=== PATIENT | male | born 1955 | race Caucasian/White ===

== ENCOUNTER 2017-01-03 05:42 | Day surgery (SDC) | payer MEDICARE, MEDICAID ==
[2017-01-02 09:13] LABS: BLOOD UREA NITROGEN 22 mg/dL (7-18)
[2017-01-02 09:17] LABS: ASPARTATE AMINO TRANSFERASE 9 U/L (15-37)
[~2017-01-03] VITALS: Ht 175.3 cm; Wt 107.0 kg
[~2017-01-03 05:42] MED LIST: ALBU18HF INH; AMLO10TA2 PO; ASPI-515 PO; ATOR80TA75 PO; CILO50TA PO; CLOP75TA PO; FURO80TA3 PO; GABA300C10 PO; HYDR50TA13 PO; ISOS30TA8 PO; LEVE10007 PO; METO25TA35 PO; MULT-309 PO; TIOT4MIS3 INH; TOPI-33 PO
[2017-01-03] MEDS ORDERED: EPINEPHRINE TOPICAL SOLN 1 MG/ML, 30ML ONE (06:10)
[2017-01-03 06:13] VITALS: BP 101/65
[2017-01-03] MEDS ORDERED: KETAMINE 10 MG/ML, 20ML ONE (07:01)
[2017-01-03] MEDS ORDERED: FENTANYL PF 100 MCG/2ML ONE (07:01)
[2017-01-03] MEDS ORDERED: MIDAZOLAM 1 MG/ML, 2ML ONE (07:02)
[2017-01-03] MEDS ORDERED: LACTATED RINGERS 1,000 ML IV SCH (07:07)
[2017-01-03] MEDS ORDERED: PROPOFOL 10 MG/ML, 20ML ONE (07:17)
[2017-01-03] MEDS ORDERED: ALBUTEROL/IPRATROPIUM 2.5MG/0.5MG, 3 ML ONE (07:43)
[2017-01-03] MEDS ORDERED: ALBUTEROL/IPRATROPIUM 2.5MG/0.5MG, 3 ML NPPB PRN (08:30)
== END 2017-01-03 09:40 | disposition home or self-care (01) ==
LOC: OUT 05:42
PROVIDERS: ATTEND Specialist
DX: D38.0 Neoplasm of uncertain behavior of larynx (principal); I25.10 Atherosclerotic heart disease of native coronary artery without angina pectoris; Z95.1 Presence of aortocoronary bypass graft; Z86.79 Personal history of other diseases of the circulatory system; F17.210 Nicotine dependence, cigarettes, uncomplicated; G40.909 Epilepsy, unspecified, not intractable, without status epilepticus; Z86.718 Personal history of other venous thrombosis and embolism; I10 Essential (primary) hypertension; Z86.72 Personal history of thrombophlebitis; J43.9 Emphysema, unspecified; F41.9 Anxiety disorder, unspecified; F32.9 Major depressive disorder, single episode, unspecified; Z72.89 Other problems related to lifestyle; Z80.1 Family history of malignant neoplasm of trachea, bronchus and lung; Z82.49 Family history of ischemic heart disease and other diseases of the circulatory system; Z82.3 Family history of stroke; Z83.3 Family history of diabetes mellitus; Z82.5 Family history of asthma and other chronic lower respiratory diseases
CPT/HCPCS: 31535; 36415; 80053; 88305; 93005; 94640; J2250; J2704; J7120; J3010

== ENCOUNTER 2017-02-14 09:24 | Inpatient (IN) | payer MEDICARE, MEDICAID ==
[~2017-02-14] VITALS: Ht 175.3 cm; Wt 105.2 kg
[~2017-02-14 09:24] MED LIST changes: +ETOMIDATE 20 MG/10 ML ONE; +PROPOFOL 10 MG/ML, 100ML IV ONE; +SUCCINYLCHOLINE 20 MG/ML, 10ML ONE; +VECURONIUM 10 MG ONE
[2017-02-14] MEDS ORDERED: methylPREDNISolone SOD SUCC 125 MG/2 ML ONE (09:50)
[2017-02-14] MEDS ORDERED: SODIUM CHLORIDE FLUSH 10ML SYR IVF ONE ×2 (10:00)
[2017-02-14] MEDS ORDERED: AZITHROMYCIN 500 MG in SODIUM CHLORIDE 0.9% 250 ML IV ONE (10:00)
[2017-02-14] MEDS ORDERED: methylPREDNISolone SOD SUCC 125 MG/2 ML IVP ONE (10:00)
[2017-02-14] MEDS ORDERED: SODIUM CHLORIDE 0.9% 1,000ML IVBOLUS ONE ×4 (10:00→18:00)
[2017-02-14] MEDS ORDERED: CEFTRIAXONE PMX 1GM/50ML 50 ML IVPB ONE (10:00)
[2017-02-14] MEDS ORDERED: SODIUM CHLORIDE 0.9%, 500ML IVBOLUS ONE (10:00)
[2017-02-14] MEDS ORDERED: SODIUM CHLORIDE 0.9% 1,000 ML IV ONE (10:00)
[2017-02-14] MEDS ORDERED: CEFTRIAXONE PMX 1GM/50ML 50 ML ONE (10:04)
[2017-02-14 10:08] LABS: ABG COLLECTION SITE RIGHT BRACHIAL
[2017-02-14 10:20] LABS: ASPARTATE AMINO TRANSFERASE 5 U/L (15-37); BLOOD UREA NITROGEN 15 mg/dL (7-18)
[2017-02-14] MEDS: PROPOFOL 100 ML IV PRN ×3 (10:25→19:54)
[2017-02-14 10:26] LABS: IS PT STATUS REG ER OR PRE ER? YES
[2017-02-14] MEDS ORDERED: ONDANSETRON 2MG/ML, 2ML ONE (10:27)
[2017-02-14] MEDS ORDERED: VECURONIUM 10 MG IVPush ONE (10:30)
[2017-02-14] MEDS ORDERED: ETOMIDATE 20 MG/10 ML IV ONE (10:30)
[2017-02-14] MEDS ORDERED: ONDANSETRON 2MG/ML, 2ML IVPush ONE (10:30)
[2017-02-14] MEDS ORDERED: SUCCINYLCHOLINE 20 MG/ML, 10ML IVPush ONE (10:30)
[2017-02-14] MEDS: ALBUTEROL/IPRATROPIUM 2.5MG/0.5MG, 3 ML NPPB SCH ×2 (10:34→11:00)
[2017-02-14] MEDS ORDERED: ALBUTEROL/IPRATROPIUM 2.5MG/0.5MG, 3 ML ONE ×2 (10:50→11:01)
[2017-02-14] MEDS ORDERED: FUROSEMIDE 40 MG/4 ML ONE (10:52)
[2017-02-14] MEDS ORDERED: FUROSEMIDE 40 MG/4 ML IV ONE (11:00)
[2017-02-14 11:28] LABS: PATH.CAST-FLAG NOT PRESENT; SPERM-FLAG NOT PRESENT; SRC-FLAG NOT PRESENT; XTAL-FLAG NOT PRESENT; YLC-FLAG NOT PRESENT
[2017-02-14] MEDS ORDERED: ONDANSETRON 2MG/ML, 2ML IVPush PRN (12:30)
[2017-02-14] MEDS ORDERED: OXYcodone IR 5MG TABLET PO PRN (12:30)
[2017-02-14] MEDS ORDERED: LORazepam 2 MG/ML, 1ML IVPush PRN (12:30)
[2017-02-14] MEDS ORDERED: POLYETHYLENE GLYCOL 17 GM PACKET PO PRN (12:30)
[2017-02-14] MEDS ORDERED: NOREPINEPHRINE 4 MG in SODIUM CHLORIDE 0.9% 246 ML IV PRN (12:30)
[2017-02-14] MEDS ORDERED: ACETAMINOPHEN 325 MG TABLET PO PRN (12:30)
[2017-02-14 12:37] LABS: ABG COLLECTION SITE RIGHT RADIAL; COLLATERAL CIRCULATION TESTING NORMAL; FIO2 50 %
[2017-02-14] MEDS: methylPREDNISolone SOD SUCC 125 MG/2 ML IVPush SCH ×2 (12:58→17:16)
[2017-02-14] MEDS: ENOXAPARIN 40 MG/0.4 ML SQ SCH (12:58)
[2017-02-14] MEDS: SODIUM CHLORIDE 0.9% 1,000 ML IV SCH ×2 (12:59→22:23)
[2017-02-14] MEDS ORDERED: CEFTRIAXONE PMX 1GM/50ML 50 ML IV SCH ×3 (13:00)
[2017-02-14] MEDS ORDERED: PROPOFOL 100 ML IV PRN (14:53)
[2017-02-14] MEDS ORDERED: SENNOSIDES 8.8 MG/5 ML ORAL SOL NG PRN (15:00)
[2017-02-14] MEDS ORDERED: LIDOCAINE-MPF 1%, 2ML ENDO PRN (15:00)
[2017-02-14] MEDS ORDERED: FENTANYL PF 100 MCG/2ML IVPush PRN (15:00)
[2017-02-14] MEDS ORDERED: BISACODYL 10 MG SUPP PR PRN (15:00)
[2017-02-14] MEDS ORDERED: LACTULOSE 20 GM/30 ML UDC NG PRN (15:00)
[2017-02-14] MEDS: ALBUTEROL/IPRATROPIUM 2.5MG/0.5MG, 3 ML INLINE SCH ×3 (15:00→22:43)
[2017-02-14] MEDS ORDERED: SENNA/DOCUSATE TABLET NG PRN (15:00)
[2017-02-14] MEDS ORDERED: PHARMACY MAY ADJ FOR RENAL FX MC SCH (15:00)
[2017-02-14] MEDS: LEVETIRACETAM 500 MG TABLET PO SCH (20:04)
[2017-02-14] MEDS: SODIUM CHLORIDE FLUSH 3ML SYRINGE IVF SCH (20:04)
[2017-02-14] MEDS: TOPIRAMATE 25 MG TABLET PO SCH (20:04)
[2017-02-14] MEDS: GABAPENTIN 300 MG CAPSULE PO SCH (20:04)
[2017-02-14] MEDS: ATORVASTATIN 80 MG TABLET PO SCH (20:04)
[2017-02-14] MEDS: FAMOTIDINE 20 MG/2 ML IVPush SCH (20:04)
[2017-02-14] MEDS: CLOPIDOGREL 75 MG TABLET PO SCH (20:04)
[2017-02-15] MEDS: methylPREDNISolone SOD SUCC 125 MG/2 ML IVPush SCH ×4 (00:04→17:26)
[2017-02-15] MEDS: SODIUM CHLORIDE 0.9% 1,000 ML IV SCH (00:15)
[2017-02-15] MEDS: ALBUTEROL/IPRATROPIUM 2.5MG/0.5MG, 3 ML INLINE SCH ×6 (02:09→22:54)
[2017-02-15 04:29] VITALS: BP 110/60
[2017-02-15 04:38] LABS: ABG COLLECTION SITE LEFT RADIAL; COLLATERAL CIRCULATION TESTING NORMAL
[2017-02-15 05:08] LABS: BLOOD UREA NITROGEN 18 mg/dL (7-18)
[2017-02-15 05:12] LABS: ASPARTATE AMINO TRANSFERASE 7 U/L (15-37)
[2017-02-15] MEDS: TOPIRAMATE 25 MG TABLET PO SCH ×2 (07:45→21:14)
[2017-02-15] MEDS: LEVETIRACETAM 500 MG TABLET PO SCH ×2 (07:45→21:14)
[2017-02-15] MEDS: ASPIRIN 81 MG TABLET EC PO SCH (07:45)
[2017-02-15] MEDS: GABAPENTIN 300 MG CAPSULE PO SCH ×2 (07:45→21:14)
[2017-02-15] MEDS: POTASSIUM CHLORIDE 10% 40 MEQ/30 ML UDC PO SCH ×2 (07:45→21:16)
[2017-02-15] MEDS: SENNA/DOCUSATE TABLET PO SCH (07:46)
[2017-02-15] MEDS: TEMPLATE NON-FORMULARY MED. (Tiotropium Br/Olodaterol HCl (Stiolto Respimat Inhal Spray) 2 INH SCH (07:46)
[2017-02-15] MEDS: SODIUM CHLORIDE FLUSH 3ML SYRINGE IVF SCH ×2 (07:46→21:00)
[2017-02-15] MEDS: FAMOTIDINE 20 MG/2 ML IVPush SCH ×2 (07:47→21:14)
[2017-02-15 08:09] LABS: IS PT STATUS REG ER OR PRE ER? NO
[2017-02-15] MEDS ORDERED: SODIUM CHLORIDE 0.9% 1,000 ML IV SCH (08:30)
[2017-02-15] MEDS ORDERED: FUROSEMIDE 20 MG/2 ML IV ONE ×2 (08:30→16:00)
[2017-02-15] MEDS: PROPOFOL 100 ML IV PRN ×2 (09:27→17:26)
[2017-02-15] MEDS ORDERED: CEFTRIAXONE PMX 1GM/50ML 50 ML IV SCH (10:00)
[2017-02-15] MEDS ORDERED: AZITHROMYCIN 500 MG in SODIUM CHLORIDE 0.9% 250 ML IV SCH (11:00)
[2017-02-15] MEDS: ENOXAPARIN 40 MG/0.4 ML SQ SCH (13:22)
[2017-02-15] MEDS: MEROPENEM 1 GM in SODIUM CHLORIDE 0.9% 50 ML IV SCH ×2 (14:28→21:14)
[2017-02-15] MEDS: ATORVASTATIN 80 MG TABLET PO SCH (21:14)
[2017-02-15] MEDS: CLOPIDOGREL 75 MG TABLET PO SCH (21:14)
[2017-02-16] MEDS: methylPREDNISolone SOD SUCC 125 MG/2 ML IVPush SCH ×4 (00:59→18:15)
[2017-02-16] MEDS: ALBUTEROL/IPRATROPIUM 2.5MG/0.5MG, 3 ML INLINE SCH ×3 (02:56→10:59)
[2017-02-16] MEDS: PROPOFOL 100 ML IV PRN (03:40)
[2017-02-16 04:38] VITALS: BP 116/67
[2017-02-16 04:49] LABS: ABG COLLECTION SITE RIGHT RADIAL; COLLATERAL CIRCULATION TESTING NORMAL
[2017-02-16] MEDS: MEROPENEM 1 GM in SODIUM CHLORIDE 0.9% 50 ML IV SCH ×3 (05:12→20:08)
[2017-02-16 05:14] LABS: BLOOD UREA NITROGEN 25 mg/dL (7-18)
[2017-02-16] MEDS: SODIUM CHLORIDE FLUSH 3ML SYRINGE IVF SCH ×2 (09:00→20:11)
[2017-02-16] MEDS: SENNA/DOCUSATE TABLET PO SCH (09:00)
[2017-02-16] MEDS: TEMPLATE NON-FORMULARY MED. (Tiotropium Br/Olodaterol HCl (Stiolto Respimat Inhal Spray) 2 INH SCH (09:00)
[2017-02-16] MEDS: GABAPENTIN 300 MG CAPSULE PO SCH ×2 (09:21→20:08)
[2017-02-16] MEDS: LEVETIRACETAM 500 MG TABLET PO SCH ×2 (09:21→20:09)
[2017-02-16] MEDS: ASPIRIN 81 MG TABLET EC PO SCH (09:21)
[2017-02-16] MEDS: TOPIRAMATE 25 MG TABLET PO SCH ×2 (09:21→20:09)
[2017-02-16] MEDS: FAMOTIDINE 20 MG/2 ML IVPush SCH ×2 (09:21→20:09)
[2017-02-16] MEDS ORDERED: ALBUTEROL/IPRATROPIUM 2.5MG/0.5MG, 3 ML NPPB PRN (12:00)
[2017-02-16] MEDS: ENOXAPARIN 40 MG/0.4 ML SQ SCH (13:27)
[2017-02-16] MEDS: ALBUTEROL/IPRATROPIUM 2.5MG/0.5MG, 3 ML NPPB SCH ×3 (14:41→22:45)
[2017-02-16] MEDS: ATORVASTATIN 80 MG TABLET PO SCH (20:08)
[2017-02-16] MEDS: CLOPIDOGREL 75 MG TABLET PO SCH (20:09)
[2017-02-17] MEDS: methylPREDNISolone SOD SUCC 125 MG/2 ML IVPush SCH ×4 (00:30→18:24)
[2017-02-17] MEDS: ALBUTEROL/IPRATROPIUM 2.5MG/0.5MG, 3 ML NPPB SCH ×6 (03:30→23:00)
[2017-02-17 04:32] LABS: ABG COLLECTION SITE RIGHT RADIAL; COLLATERAL CIRCULATION TESTING NORMAL
[2017-02-17 04:43] LABS: BLOOD UREA NITROGEN 26 mg/dL (7-18)
[2017-02-17 05:00] VITALS: BP 110/60
[2017-02-17] MEDS: MEROPENEM 1 GM in SODIUM CHLORIDE 0.9% 50 ML IV SCH ×3 (06:02→21:39)
[2017-02-17] MEDS ORDERED: SODIUM CHLORIDE 0.9% 1,000 ML IV SCH (08:31)
[2017-02-17] MEDS: TEMPLATE NON-FORMULARY MED. (Tiotropium Br/Olodaterol HCl (Stiolto Respimat Inhal Spray) 2 INH SCH (09:00)
[2017-02-17] MEDS: LEVETIRACETAM 500 MG TABLET PO SCH ×2 (09:08→21:11)
[2017-02-17] MEDS: SENNA/DOCUSATE TABLET PO SCH (09:08)
[2017-02-17] MEDS: ASPIRIN 81 MG TABLET EC PO SCH (09:08)
[2017-02-17] MEDS: GABAPENTIN 300 MG CAPSULE PO SCH ×2 (09:09→21:12)
[2017-02-17] MEDS: TOPIRAMATE 25 MG TABLET PO SCH ×2 (09:09→21:12)
[2017-02-17] MEDS: SODIUM CHLORIDE FLUSH 3ML SYRINGE IVF SCH ×2 (09:17→21:00)
[2017-02-17] MEDS: CIPROFLOXACIN/PMX 400MG/200ML 200 ML IVPB SCH ×2 (10:16→22:43)
[2017-02-17] MEDS: ENOXAPARIN 40 MG/0.4 ML SQ SCH (12:41)
[2017-02-17 14:29] LABS: ABG COLLECTION SITE RIGHT RADIAL; COLLATERAL CIRCULATION TESTING NORMAL
[2017-02-17 15:05] VITALS: BP 107/68
[2017-02-17] MEDS ORDERED: GADOBUTROL 10 MMOL/10 ML PFS ONE (19:04)
[2017-02-17] MEDS ORDERED: TEMPLATE NON-FORMULARY MED. (Tiotropium Br/Olodaterol HCl (Stiolto Respimat Inhal Spray) 2 INH SCH (20:55)
[2017-02-17] MEDS: CLOPIDOGREL 75 MG TABLET PO SCH (21:00)
[2017-02-17] MEDS: ATORVASTATIN 80 MG TABLET PO SCH (21:12)
[2017-02-17 21:15] VITALS: BP 101/64
[2017-02-18] MEDS: methylPREDNISolone SOD SUCC 125 MG/2 ML IVPush SCH ×4 (00:43→17:49)
[2017-02-18 02:48] VITALS: BP 110/67
[2017-02-18] MEDS: ALBUTEROL/IPRATROPIUM 2.5MG/0.5MG, 3 ML NPPB SCH ×5 (03:00→18:33)
[2017-02-18] MEDS: MEROPENEM 1 GM in SODIUM CHLORIDE 0.9% 50 ML IV SCH (05:15)
[2017-02-18 05:43] LABS: BLOOD UREA NITROGEN 27 mg/dL (7-18)
[2017-02-18 08:00] VITALS: BP 127/78
[2017-02-18] MEDS: ASPIRIN 81 MG TABLET EC PO SCH (09:00)
[2017-02-18] MEDS: LEVETIRACETAM 500 MG TABLET PO SCH ×2 (09:11→20:58)
[2017-02-18] MEDS: GABAPENTIN 300 MG CAPSULE PO SCH ×2 (09:12→20:59)
[2017-02-18] MEDS: TOPIRAMATE 25 MG TABLET PO SCH ×2 (09:12→20:59)
[2017-02-18] MEDS: SENNA/DOCUSATE TABLET PO SCH (09:12)
[2017-02-18] MEDS: SODIUM CHLORIDE FLUSH 3ML SYRINGE IVF SCH ×2 (09:13→20:58)
[2017-02-18] MEDS: PANTOPRAZOLE 40 MG IV IVPush SCH ×2 (09:13→11:05)
[2017-02-18] MEDS ORDERED: ASPIRIN 81 MG TABLET CHEW PO SCH (09:30)
[2017-02-18] MEDS: CIPROFLOXACIN/PMX 400MG/200ML 200 ML IVPB SCH ×2 (11:05→22:20)
[2017-02-18] MEDS ORDERED: ENOXAPARIN 40 MG/0.4 ML SQ SCH (12:00)
[2017-02-18] MEDS ORDERED: OMNIPAQUE 350 MG/ML, 100ML BOTTLE ONE (12:10)
[2017-02-18 13:26] VITALS: BP 123/68
[2017-02-18] MEDS: MEROPENEM 1 GM in SODIUM CHLORIDE 0.9% 100 ML IV SCH ×2 (14:51→23:23)
[2017-02-18 19:08] VITALS: BP 100/78
[2017-02-18] MEDS: CLOPIDOGREL 75 MG TABLET PO SCH (20:58)
[2017-02-18] MEDS: ATORVASTATIN 80 MG TABLET PO SCH (20:59)
[2017-02-19] MEDS: methylPREDNISolone SOD SUCC 125 MG/2 ML IVPush SCH ×2 (00:28→06:34)
[2017-02-19 01:48] VITALS: BP 109/64
[2017-02-19 05:28] LABS: BLOOD UREA NITROGEN 32 mg/dL (7-18)
[2017-02-19 05:32] LABS: ASPARTATE AMINO TRANSFERASE 10 U/L (15-37)
[2017-02-19] MEDS: MEROPENEM 1 GM in SODIUM CHLORIDE 0.9% 100 ML IV SCH (06:34)
[2017-02-19] MEDS ORDERED: ALBUTEROL/IPRATROPIUM 2.5MG/0.5MG, 3 ML NPPB SCH (07:00)
[2017-02-19] MEDS ORDERED: SODIUM CHLORIDE 0.9% 1,000 ML IV SCH (08:31)
== END 2017-02-19 10:10 | disposition left against medical advice (07) | DRG 871 ==
LOC: ED 11:12 → EDIP 11:13 → CCU 11:48 → 5SO 02-17 14:56
PROVIDERS: ADMIT Internal Medicine; ATTEND Internal Medicine
PROC: 5A1945Z Respiratory Ventilation, 24-96 Consecutive Hours (ICD-10-PCS; principal; 2017-02-14)
PROC: 0BH17EZ Insertion of Endotracheal Airway into Trachea, Via Natural or Artificial Opening (ICD-10-PCS; 2017-02-14)
DX: A41.9 Sepsis, unspecified organism (principal); I50.31 Acute diastolic (congestive) heart failure; J96.21 Acute and chronic respiratory failure with hypoxia; E43 Unspecified severe protein-calorie malnutrition; G93.40 Encephalopathy, unspecified; J15.4 Pneumonia due to other streptococci; J96.22 Acute and chronic respiratory failure with hypercapnia; E87.1 Hypo-osmolality and hyponatremia; I13.0 Hypertensive heart and chronic kidney disease with heart failure and stage 1 through stage 4 chronic kidney disease, or unspecified chronic kidney disease; J44.0 Chronic obstructive pulmonary disease with (acute) lower respiratory infection; J44.1 Chronic obstructive pulmonary disease with (acute) exacerbation; N39.0 Urinary tract infection, site not specified; Z99.11 Dependence on respirator [ventilator] status; E78.5 Hyperlipidemia, unspecified; F17.200 Nicotine dependence, unspecified, uncomplicated; G40.909 Epilepsy, unspecified, not intractable, without status epilepticus; G47.33 Obstructive sleep apnea (adult) (pediatric); I25.10 Atherosclerotic heart disease of native coronary artery without angina pectoris; I27.2 Other secondary pulmonary hypertension; I73.9 Peripheral vascular disease, unspecified; N18.9 Chronic kidney disease, unspecified; Z85.21 Personal history of malignant neoplasm of larynx; Z95.1 Presence of aortocoronary bypass graft; Z99.81 Dependence on supplemental oxygen; Z79.899 Other long term (current) drug therapy; Z79.82 Long term (current) use of aspirin; Z79.02 Long term (current) use of antithrombotics/antiplatelets; Z68.34 Body mass index [BMI] 34.0-34.9, adult
CPT/HCPCS: 36415; 36600; 70491; 70543; 71010; 74230; 80048; 80053; 80201; 81001; 82533; 82803; 83605; 83735; 83880; 84100; 84145; 84478; 84484; 85025; 85610; 85730; 87040; 87070; 87077; 87081; 87086; 87181; 87184; 87186; 87205; 93005; 93306; 94002; 94003; 94640; 94660; A9585; J0456; J0696; J0744; J1650; J1940; J2185; J2405; J2704; J7620; Q9967; C9113; J0330; J2930; J7030; J7040; J7050; S0028

== ENCOUNTER 2017-03-16 19:07 | Inpatient (IN) | payer MEDICARE, MEDICAID ==
[~2017-03-16] VITALS: Ht 175.3 cm; Wt 106.4 kg
[~2017-03-16 19:07] MED LIST changes: -VECURONIUM 10 MG ONE
[2017-03-16] MEDS: ALBUTEROL/IPRATROPIUM 2.5MG/0.5MG, 3 ML NPPB SCH (19:21)
[2017-03-16] MEDS ORDERED: methylPREDNISolone SOD SUCC 125 MG/2 ML IVP ONE (19:30)
[2017-03-16] MEDS ORDERED: MAGNESIUM SULFATE PMX 2GM/50ML 50 ML IVPB ONE (19:30)
[2017-03-16] MEDS ORDERED: methylPREDNISolone SOD SUCC 125 MG/2 ML ONE (19:34)
[2017-03-16] MEDS ORDERED: PIPERACILLIN/TAZO/PMX 3.375GM 50 ML IVPB ONE (20:00)
[2017-03-16 20:06] LABS: ASPARTATE AMINO TRANSFERASE 7 U/L (15-37); BLOOD UREA NITROGEN 12 mg/dL (7-18)
[2017-03-16] MEDS ORDERED: PIPERACILLIN/TAZO/PMX 3.375GM 50 ML ONE (20:13)
[2017-03-16 20:15] LABS: IS PT STATUS REG ER OR PRE ER? YES
[2017-03-16 20:17] LABS: DIFF TOTAL CELLS COUNTED 100 CELL DIFF
[2017-03-16 20:18] LABS: ABG COLLECTION SITE LEFT RADIAL; COLLATERAL CIRCULATION TESTING NORMAL
[2017-03-16 20:19] LABS: POLYCHROMASIA 1+; VERIFY COUNTS? YES
[2017-03-16] MEDS ORDERED: PROPOFOL 100 ML IV PRN (20:28)
[2017-03-16] MEDS ORDERED: FENTANYL PF 100 MCG/2ML IV ONE (20:30)
[2017-03-16] MEDS ORDERED: ETOMIDATE 20 MG/10 ML IV ONE (20:30)
[2017-03-16] MEDS ORDERED: SUCCINYLCHOLINE 20 MG/ML, 10ML IVPush ONE (20:30)
[2017-03-16] MEDS ORDERED: LIDOCAINE-MPF 1%, 2ML ENDO PRN (21:00)
[2017-03-16] MEDS ORDERED: PHARMACY MAY ADJ FOR RENAL FX MC SCH (21:00)
[2017-03-16] MEDS ORDERED: FENTANYL PF 100 MCG/2ML ONE (21:02)
[2017-03-16] MEDS ORDERED: NS + 20MEQ KCL 1,000 ML IV ONE (21:15)
[2017-03-16] MEDS: NS + 20MEQ KCL 1,000 ML IV SCH ×2 (21:20→23:23)
[2017-03-16 21:23] LABS: ABG COLLECTION SITE RIGHT RADIAL; COLLATERAL CIRCULATION TESTING NORMAL
[2017-03-16] MEDS ORDERED: DOCUSATE 100 MG CAPSULE PO PRN (21:30)
[2017-03-16] MEDS: methylPREDNISolone SOD SUCC 125 MG/2 ML IVPush SCH (21:30)
[2017-03-16] MEDS ORDERED: ACETAMINOPHEN 325 MG TABLET PO PRN (21:30)
[2017-03-16] MEDS ORDERED: PROCHLORPERAZINE 5 MG/ML, 2ML IM PRN (21:30)
[2017-03-16] MEDS ORDERED: BISACODYL 10 MG SUPP PR PRN (21:30)
[2017-03-16] MEDS ORDERED: ONDANSETRON 2MG/ML, 2ML IVPush PRN (21:30)
[2017-03-16] MEDS ORDERED: hydrALAzine 20 MG/ML, 1ML IVPush PRN (21:30)
[2017-03-16] MEDS ORDERED: VANCOMYCIN PER PHARMACY MC PRN (21:30)
[2017-03-16] MEDS ORDERED: POLYETHYLENE GLYCOL 17 GM PACKET PO PRN (21:30)
[2017-03-16] MEDS: VANCOMYCIN 2,000 MG in SODIUM CHLORIDE 0.9% 500 ML IV SCH (22:54)
[2017-03-16 23:00] VITALS: BP 82/50
[2017-03-16] MEDS: ALBUTEROL/IPRATROPIUM 2.5MG/0.5MG, 3 ML INLINE SCH (23:00)
[2017-03-16] MEDS: LEVETIRACETAM 500 MG TABLET PO SCH (23:11)
[2017-03-16] MEDS: ENOXAPARIN 40 MG/0.4 ML SQ SCH (23:12)
[2017-03-16] MEDS: ATORVASTATIN 80 MG TABLET PO SCH (23:12)
[2017-03-16] MEDS: CLOPIDOGREL 75 MG TABLET PO SCH (23:23)
[2017-03-17] MEDS ORDERED: SODIUM CHLORIDE 0.9% 1,000ML IVBOLUS ONE ×2 (01:00→03:30)
[2017-03-17 01:10] LABS: ABG COLLECTION SITE RIGHT BRACHIAL
[2017-03-17] MEDS: ALBUTEROL/IPRATROPIUM 2.5MG/0.5MG, 3 ML INLINE SCH ×6 (02:06→22:37)
[2017-03-17] MEDS: PIPERACILLIN/TAZO/PMX 3.375GM 50 ML IV SCH ×4 (02:49→21:23)
[2017-03-17] MEDS: methylPREDNISolone SOD SUCC 125 MG/2 ML IVPush SCH ×4 (02:51→21:42)
[2017-03-17 04:00] VITALS: BP 80/44
[2017-03-17 04:51] LABS: ABG COLLECTION SITE RIGHT BRACHIAL
[2017-03-17 05:00] LABS: BLOOD UREA NITROGEN 14 mg/dL (7-18)
[2017-03-17] MEDS ORDERED: NOREPINEPHRINE 4 MG in SODIUM CHLORIDE 0.9% 246 ML IV PRN (05:00)
[2017-03-17 05:09] LABS: ASPARTATE AMINO TRANSFERASE 10 U/L (15-37)
[2017-03-17 05:50] LABS: DIFF TOTAL CELLS COUNTED 100 CELL DIFF
[2017-03-17 05:53] LABS: ANISOCYTOSIS 1+; VERIFY COUNTS? YES
[2017-03-17 05:55] LABS: POLYCHROMASIA 1+
[2017-03-17] MEDS ORDERED: POTASSIUM PHOSPHATE 44 MEQ in SODIUM CHLORIDE 0.9% 500 ML IV ONE (07:00)
[2017-03-17] MEDS ORDERED: POTASSIUM CHLORIDE 20 MEQ PACKET PO SCH (09:00)
[2017-03-17] MEDS: ISOSORBIDE MONONITRATE ER 30 MG TABLET PO SCH (09:00)
[2017-03-17] MEDS ORDERED: ASPIRIN 81 MG TABLET EC PO SCH (09:00)
[2017-03-17] MEDS ORDERED: PHARMACOKINETIC CONSULTATION MC ONE (09:30)
[2017-03-17] MEDS ORDERED: PHARMACOKINETIC MONITORING MC PRN (09:30)
[2017-03-17] MEDS: POTASSIUM CHLORIDE 20 MEQ PACKET PO SCH ×2 (09:36→21:42)
[2017-03-17] MEDS: LEVETIRACETAM 500 MG TABLET PO SCH ×2 (09:36→21:42)
[2017-03-17] MEDS: TOPIRAMATE 25 MG TABLET PO SCH ×2 (09:37→21:42)
[2017-03-17] MEDS: METOPROLOL TARTRATE 25 MG TABLET PO SCH ×2 (09:37→21:44)
[2017-03-17] MEDS: PROPOFOL 100 ML IV PRN (09:39)
[2017-03-17] MEDS: NS + 20MEQ KCL 1,000 ML IV SCH ×2 (09:48→17:39)
[2017-03-17] MEDS: ASPIRIN 81 MG TABLET CHEW PO SCH (15:20)
[2017-03-17] MEDS: ENOXAPARIN 40 MG/0.4 ML SQ SCH (21:42)
[2017-03-17] MEDS: ATORVASTATIN 80 MG TABLET PO SCH (21:43)
[2017-03-17] MEDS: CLOPIDOGREL 75 MG TABLET PO SCH (21:44)
[2017-03-17] MEDS: VANCOMYCIN 2,000 MG in SODIUM CHLORIDE 0.9% 500 ML IV SCH (23:47)
[2017-03-18] MEDS: ALBUTEROL/IPRATROPIUM 2.5MG/0.5MG, 3 ML INLINE SCH ×3 (01:38→10:00)
[2017-03-18] MEDS: NS + 20MEQ KCL 1,000 ML IV SCH ×2 (02:53→17:00)
[2017-03-18] MEDS: PIPERACILLIN/TAZO/PMX 3.375GM 50 ML IV SCH ×4 (02:53→20:30)
[2017-03-18] MEDS: PROPOFOL 100 ML IV PRN (02:53)
[2017-03-18] MEDS: methylPREDNISolone SOD SUCC 125 MG/2 ML IVPush SCH ×4 (02:54→20:30)
[2017-03-18 04:35] LABS: ABG COLLECTION SITE RIGHT RADIAL; COLLATERAL CIRCULATION TESTING NORMAL
[2017-03-18 05:59] LABS: BLOOD UREA NITROGEN 21 mg/dL (7-18)
[2017-03-18] MEDS: ASPIRIN 81 MG TABLET CHEW PO SCH (08:17)
[2017-03-18] MEDS: TOPIRAMATE 25 MG TABLET PO SCH ×2 (08:18→20:50)
[2017-03-18] MEDS: METOPROLOL TARTRATE 25 MG TABLET PO SCH ×2 (08:18→20:49)
[2017-03-18] MEDS: LEVETIRACETAM 500 MG TABLET PO SCH ×2 (08:18→20:49)
[2017-03-18] MEDS: ISOSORBIDE MONONITRATE ER 30 MG TABLET PO SCH (09:00)
[2017-03-18] MEDS ORDERED: SODIUM PHOSPHATE 20 MMOL in SODIUM CHLORIDE 0.9% 500 ML IV ONE (09:30)
[2017-03-18] MEDS: ALBUTEROL/IPRATROPIUM 2.5MG/0.5MG, 3 ML NPPB SCH ×3 (11:00→18:49)
[2017-03-18] MEDS: ENOXAPARIN 40 MG/0.4 ML SQ SCH (20:30)
[2017-03-18] MEDS: CLOPIDOGREL 75 MG TABLET PO SCH (20:49)
[2017-03-18] MEDS: ATORVASTATIN 80 MG TABLET PO SCH (20:49)
[2017-03-19] MEDS: PIPERACILLIN/TAZO/PMX 3.375GM 50 ML IV SCH ×4 (02:36→22:25)
[2017-03-19] MEDS: methylPREDNISolone SOD SUCC 125 MG/2 ML IVPush SCH ×4 (04:28→22:25)
[2017-03-19 04:58] LABS: BLOOD UREA NITROGEN 20 mg/dL (7-18)
[2017-03-19] MEDS: ALBUTEROL/IPRATROPIUM 2.5MG/0.5MG, 3 ML NPPB SCH ×4 (07:25→20:45)
[2017-03-19] MEDS: METOPROLOL TARTRATE 25 MG TABLET PO SCH ×2 (09:18→21:02)
[2017-03-19] MEDS: TOPIRAMATE 25 MG TABLET PO SCH ×2 (09:18→21:02)
[2017-03-19] MEDS: LEVETIRACETAM 500 MG TABLET PO SCH ×2 (09:19→21:02)
[2017-03-19] MEDS: ASPIRIN 81 MG TABLET CHEW PO SCH (09:19)
[2017-03-19] MEDS: ISOSORBIDE MONONITRATE ER 30 MG TABLET PO SCH (09:20)
[2017-03-19 15:47] VITALS: BP 110/66
[2017-03-19] MEDS: NS + 20MEQ KCL 1,000 ML IV SCH (16:15)
[2017-03-19 19:14] VITALS: BP 124/74
[2017-03-19] MEDS: ATORVASTATIN 80 MG TABLET PO SCH (21:02)
[2017-03-19] MEDS: CLOPIDOGREL 75 MG TABLET PO SCH (21:02)
[2017-03-19] MEDS: ENOXAPARIN 40 MG/0.4 ML SQ SCH (22:25)
[2017-03-20 00:48] VITALS: BP 125/71
[2017-03-20] MEDS: PIPERACILLIN/TAZO/PMX 3.375GM 50 ML IV SCH ×4 (04:35→22:00)
[2017-03-20] MEDS: methylPREDNISolone SOD SUCC 125 MG/2 ML IVPush SCH ×4 (04:36→22:12)
[2017-03-20 06:00] LABS: BLOOD UREA NITROGEN 23 mg/dL (7-18)
[2017-03-20] MEDS: ALBUTEROL/IPRATROPIUM 2.5MG/0.5MG, 3 ML NPPB SCH ×4 (07:00→19:35)
[2017-03-20 07:20] VITALS: BP 123/78
[2017-03-20] MEDS: LEVETIRACETAM 500 MG TABLET PO SCH (08:33)
[2017-03-20] MEDS: ISOSORBIDE MONONITRATE ER 30 MG TABLET PO SCH (08:33)
[2017-03-20] MEDS: ASPIRIN 81 MG TABLET CHEW PO SCH (08:33)
[2017-03-20] MEDS: METOPROLOL TARTRATE 25 MG TABLET PO SCH ×2 (08:33→19:57)
[2017-03-20] MEDS: TOPIRAMATE 25 MG TABLET PO SCH ×2 (08:34→19:58)
[2017-03-20] MEDS: LEVETIRACETAM 1,000 MG in SODIUM CHLORIDE 0.9% 100 ML IV SCH ×2 (11:55→22:43)
[2017-03-20] MEDS: D5%-0.45% NACL 1,000 ML IV SCH ×2 (13:20→22:43)
[2017-03-20 18:47] VITALS: BP 134/80
[2017-03-20] MEDS: CLOPIDOGREL 75 MG TABLET PO SCH (19:57)
[2017-03-20] MEDS: ATORVASTATIN 80 MG TABLET PO SCH (19:57)
[2017-03-20] MEDS: ENOXAPARIN 40 MG/0.4 ML SQ SCH (21:30)
[2017-03-21] MEDS: PIPERACILLIN/TAZO/PMX 3.375GM 50 ML IV SCH ×4 (04:00→22:13)
[2017-03-21] MEDS: methylPREDNISolone SOD SUCC 125 MG/2 ML IVPush SCH ×4 (05:00→23:06)
[2017-03-21 06:57] LABS: BLOOD UREA NITROGEN 24 mg/dL (7-18)
[2017-03-21 08:10] VITALS: BP 151/81
[2017-03-21] MEDS: ALBUTEROL/IPRATROPIUM 2.5MG/0.5MG, 3 ML NPPB SCH ×4 (08:10→20:00)
[2017-03-21] MEDS: TOPIRAMATE 25 MG TABLET PO SCH ×2 (09:15→21:00)
[2017-03-21] MEDS: ISOSORBIDE MONONITRATE ER 30 MG TABLET PO SCH (09:15)
[2017-03-21] MEDS: METOPROLOL TARTRATE 25 MG TABLET PO SCH ×2 (09:15→21:00)
[2017-03-21] MEDS: ASPIRIN 81 MG TABLET CHEW PO SCH (09:15)
[2017-03-21] MEDS: LEVETIRACETAM 1,000 MG in SODIUM CHLORIDE 0.9% 100 ML IV SCH ×2 (11:53→23:06)
[2017-03-21] MEDS: D5%-0.45% NACL 1,000 ML IV SCH ×2 (11:53→22:12)
[2017-03-21 13:06] VITALS: BP 125/67
[2017-03-21] MEDS: ATORVASTATIN 80 MG TABLET PO SCH (21:00)
[2017-03-21] MEDS: CLOPIDOGREL 75 MG TABLET PO SCH (21:00)
[2017-03-21 21:12] VITALS: BP 127/78
[2017-03-21] MEDS: ENOXAPARIN 40 MG/0.4 ML SQ SCH (21:30)
[2017-03-22] MEDS: PIPERACILLIN/TAZO/PMX 3.375GM 50 ML IV SCH ×3 (03:42→21:52)
[2017-03-22 03:46] VITALS: BP 111/75
[2017-03-22 05:52] LABS: BLOOD UREA NITROGEN 22 mg/dL (7-18)
[2017-03-22] MEDS: methylPREDNISolone SOD SUCC 125 MG/2 ML IVPush SCH ×3 (05:54→21:52)
[2017-03-22 07:15] VITALS: BP 134/54
[2017-03-22] MEDS: ALBUTEROL/IPRATROPIUM 2.5MG/0.5MG, 3 ML NPPB SCH ×4 (07:27→20:22)
[2017-03-22] MEDS ORDERED: FENTANYL PF 100 MCG/2ML ONE (09:55)
[2017-03-22] MEDS ORDERED: MIDAZOLAM 1 MG/ML, 5ML ONE (09:55)
[2017-03-22] MEDS ORDERED: FLUMAZENIL 0.1 MG/1 ML, 5ML ONE (09:55)
[2017-03-22] MEDS ORDERED: NALOXONE 1 MG/ML, 2ML ONE (09:55)
[2017-03-22] MEDS ORDERED: LIDOCAINE 2%, 20ML ONE ×2 (10:19→10:57)
[2017-03-22] MEDS ORDERED: LIDOCAINE GEL 2%, 5ML ONE ×2 (10:57→17:00)
[2017-03-22 13:15] VITALS: BP 129/78
[2017-03-22] MEDS: ISOSORBIDE MONONITRATE ER 30 MG TABLET PO SCH (15:03)
[2017-03-22] MEDS: TOPIRAMATE 25 MG TABLET PO SCH ×2 (15:03→21:53)
[2017-03-22] MEDS: METOPROLOL TARTRATE 25 MG TABLET PO SCH ×2 (15:03→21:53)
[2017-03-22] MEDS: ASPIRIN 81 MG TABLET CHEW PO SCH (15:03)
[2017-03-22] MEDS: LEVETIRACETAM 1,000 MG in SODIUM CHLORIDE 0.9% 100 ML IV SCH ×2 (15:03→23:00)
[2017-03-22] MEDS ORDERED: LIDOCAINE/MPF 2%-EPI 1:200K, 20 ML ONE (15:12)
[2017-03-22] MEDS ORDERED: LIDOCAINE/PF 2%-EPI 1:200K, 10ML INFIL ONE (16:30)
[2017-03-22] MEDS ORDERED: BENZOCAINE 20% SPRAY 0.5ML ONE (16:58)
[2017-03-22] MEDS: D5%-0.45% NACL 1,000 ML IV SCH (17:00)
[2017-03-22] MEDS ORDERED: OMNIPAQUE 350 MG/ML, 50 ML BOTTLE ONE (18:23)
[2017-03-22] MEDS: CLOPIDOGREL 75 MG TABLET PO SCH (21:00)
[2017-03-22] MEDS: ENOXAPARIN 40 MG/0.4 ML SQ SCH (21:30)
[2017-03-22] MEDS ORDERED: OMNIPAQUE 350 MG/ML, 100ML BOTTLE ONE (21:34)
[2017-03-22] MEDS: ATORVASTATIN 80 MG TABLET PO SCH (21:52)
[2017-03-22 21:55] VITALS: BP 124/75
[2017-03-23] MEDS: D5%-0.45% NACL 1,000 ML IV SCH ×2 (02:11→16:02)
[2017-03-23 03:07] VITALS: BP 109/62
[2017-03-23] MEDS: PIPERACILLIN/TAZO/PMX 3.375GM 50 ML IV SCH ×4 (03:10→22:06)
[2017-03-23] MEDS: methylPREDNISolone SOD SUCC 125 MG/2 ML IVPush SCH ×3 (03:11→16:01)
[2017-03-23 04:38] VITALS: BP 101/64
[2017-03-23 06:31] LABS: ASPARTATE AMINO TRANSFERASE 4 U/L (15-37); BLOOD UREA NITROGEN 20 mg/dL (7-18)
[2017-03-23] MEDS: ALBUTEROL/IPRATROPIUM 2.5MG/0.5MG, 3 ML NPPB SCH ×3 (07:35→15:00)
[2017-03-23 07:45] VITALS: BP 131/72
[2017-03-23] MEDS: ASPIRIN 81 MG TABLET CHEW PO SCH (08:20)
[2017-03-23] MEDS: ISOSORBIDE MONONITRATE ER 30 MG TABLET PO SCH (08:20)
[2017-03-23] MEDS: METOPROLOL TARTRATE 25 MG TABLET PO SCH ×2 (08:20→22:05)
[2017-03-23] MEDS: TOPIRAMATE 25 MG TABLET PO SCH ×2 (08:21→22:05)
[2017-03-23] MEDS: LEVETIRACETAM 1,000 MG in SODIUM CHLORIDE 0.9% 100 ML IV SCH (11:03)
[2017-03-23] MEDS ORDERED: EPINEPHRINE TOPICAL SOLN 1 MG/ML, 30ML ONE (11:17)
[2017-03-23] MEDS ORDERED: LIDOCAINE GEL 2%, 5ML ONE (11:17)
[2017-03-23] MEDS ORDERED: MIDAZOLAM 1 MG/ML, 2ML ONE (12:21)
[2017-03-23] MEDS ORDERED: FENTANYL PF 100 MCG/2ML IV PRN (13:00)
[2017-03-23] MEDS ORDERED: MIDAZOLAM 1 MG/ML, 2ML IV PRN (13:00)
[2017-03-23] MEDS ORDERED: PROMETHAZINE 25 MG/ML, 1ML IV PRN (13:00)
[2017-03-23] MEDS ORDERED: ONDANSETRON 2MG/ML, 2ML IVPush PRN (13:00)
[2017-03-23] MEDS ORDERED: HYDROmorphone 1 MG/ML, 1ML IV PRN (13:00)
[2017-03-23] MEDS ORDERED: ONDANSETRON 2MG/ML, 2ML ONE (13:30)
[2017-03-23] MEDS ORDERED: PROMETHAZINE 25 MG/ML, 1ML ONE (13:30)
[2017-03-23] MEDS ORDERED: PROPOFOL 10 MG/ML, 20ML ONE (16:50)
[2017-03-23] MEDS ORDERED: SUCCINYLCHOLINE 20 MG/ML, 10ML ONE (16:50)
[2017-03-23] MEDS ORDERED: DEXAMETHASONE 4 MG/ML, 1ML ONE (16:50)
[2017-03-23] MEDS: D5%-LACTATED RINGERS 1,000 ML IV SCH (18:18)
[2017-03-23 19:40] VITALS: BP 112/62
[2017-03-23] MEDS: ATORVASTATIN 80 MG TABLET PO SCH (22:05)
[2017-03-24] MEDS: LEVETIRACETAM 1,000 MG in SODIUM CHLORIDE 0.9% 100 ML IV SCH ×2 (00:03→12:30)
[2017-03-24] MEDS: methylPREDNISolone SOD SUCC 40 MG/ML IVPush SCH ×3 (00:11→22:00)
[2017-03-24 02:03] VITALS: BP 101/57
[2017-03-24] MEDS: PIPERACILLIN/TAZO/PMX 3.375GM 50 ML IV SCH ×3 (04:41→18:32)
[2017-03-24 05:15] LABS: BLOOD UREA NITROGEN 21 mg/dL (7-18)
[2017-03-24 07:00] VITALS: BP 106/60
[2017-03-24] MEDS: ALBUTEROL/IPRATROPIUM 2.5MG/0.5MG, 3 ML NPPB SCH (07:00)
[2017-03-24] MEDS: ISOSORBIDE MONONITRATE ER 30 MG TABLET PO SCH (09:00)
[2017-03-24] MEDS: ASPIRIN 81 MG TABLET CHEW PO SCH ×2 (09:00→10:49)
[2017-03-24] MEDS: METOPROLOL TARTRATE 25 MG TABLET PO SCH ×2 (09:00→22:02)
[2017-03-24] MEDS: TOPIRAMATE 25 MG TABLET PO SCH ×2 (09:00→22:01)
[2017-03-24] MEDS ORDERED: ALBUTEROL/IPRATROPIUM 2.5MG/0.5MG, 3 ML NPPB PRN (11:00)
[2017-03-24] MEDS: D5%-LACTATED RINGERS 1,000 ML IV SCH (12:31)
[2017-03-24 12:39] VITALS: BP 106/67
[2017-03-24 20:00] VITALS: BP 112/75
[2017-03-24] MEDS ORDERED: ENOXAPARIN 40 MG/0.4 ML SQ SCH (21:30)
[2017-03-24] MEDS: ATORVASTATIN 80 MG TABLET PO SCH (22:00)
[2017-03-24] MEDS: CLOPIDOGREL 75 MG TABLET PO SCH (22:00)
[2017-03-25] MEDS ORDERED: FUROSEMIDE 20 MG/2 ML IV ONE (00:30)
[2017-03-25] MEDS: PIPERACILLIN/TAZO/PMX 3.375GM 50 ML IV SCH ×4 (00:52→21:10)
[2017-03-25 01:50] VITALS: BP 109/68
[2017-03-25] MEDS: D5%-LACTATED RINGERS 1,000 ML IV SCH ×2 (02:35→19:00)
[2017-03-25] MEDS: methylPREDNISolone SOD SUCC 40 MG/ML IVPush SCH ×3 (05:32→21:10)
[2017-03-25 07:10] LABS: ABG COLLECTION SITE LEFT BRACHIAL
[2017-03-25 07:19] LABS: BLOOD UREA NITROGEN 21 mg/dL (7-18)
[2017-03-25 07:43] VITALS: BP 117/68
[2017-03-25] MEDS: ISOSORBIDE MONONITRATE ER 30 MG TABLET PO SCH (09:00)
[2017-03-25 10:59] VITALS: BP 130/80
[2017-03-25] MEDS: TOPIRAMATE 25 MG TABLET PO SCH ×2 (11:03→21:00)
[2017-03-25] MEDS: ASPIRIN 81 MG TABLET CHEW PO SCH (11:03)
[2017-03-25] MEDS: METOPROLOL TARTRATE 25 MG TABLET PO SCH ×2 (11:03→21:00)
[2017-03-25 12:32] VITALS: BP 119/74
[2017-03-25] MEDS: LEVETIRACETAM 1,000 MG in SODIUM CHLORIDE 0.9% 100 ML IV SCH ×2 (13:39)
[2017-03-25] MEDS: CLOPIDOGREL 75 MG TABLET PO SCH (21:00)
[2017-03-25] MEDS: ATORVASTATIN 80 MG TABLET PO SCH (21:00)
[2017-03-25] MEDS ORDERED: DIPHENHYDRAMINE 50 MG/ML, 1ML ONE (21:35)
[2017-03-25 21:43] VITALS: BP 106/65
[2017-03-25] MEDS ORDERED: DIPHENHYDRAMINE 50 MG/ML, 1ML IVPush PRN (22:00)
[2017-03-26] MEDS: LEVETIRACETAM 1,000 MG in SODIUM CHLORIDE 0.9% 100 ML IV SCH ×2 (00:20→15:12)
[2017-03-26] MEDS: PIPERACILLIN/TAZO/PMX 3.375GM 50 ML IV SCH ×4 (02:30→21:17)
[2017-03-26 03:04] VITALS: BP 124/72
[2017-03-26 05:28] LABS: BLOOD UREA NITROGEN 19 mg/dL (7-18)
[2017-03-26] MEDS: methylPREDNISolone SOD SUCC 40 MG/ML IVPush SCH ×3 (05:29→21:18)
[2017-03-26] MEDS: ASPIRIN 81 MG TABLET CHEW PO SCH (08:10)
[2017-03-26 08:27] VITALS: BP 122/80
[2017-03-26] MEDS: D5%-LACTATED RINGERS 1,000 ML IV SCH (08:45)
[2017-03-26] MEDS: TOPIRAMATE 25 MG TABLET PO SCH ×2 (09:00→21:17)
[2017-03-26] MEDS: METOPROLOL TARTRATE 25 MG TABLET PO SCH ×2 (09:00→21:18)
[2017-03-26] MEDS: ISOSORBIDE MONONITRATE ER 30 MG TABLET PO SCH (09:00)
[2017-03-26] MEDS ORDERED: MIDAZOLAM 1 MG/ML, 2ML ONE (11:04)
[2017-03-26] MEDS ORDERED: FENTANYL PF 100 MCG/2ML ONE (11:04)
[2017-03-26] MEDS ORDERED: KETAMINE 10 MG/ML, 20ML ONE (11:04)
[2017-03-26] MEDS ORDERED: CEFAZOLIN 1,000 MG ONE (11:06)
[2017-03-26] MEDS ORDERED: PROPOFOL 10 MG/ML, 20ML ONE (11:06)
[2017-03-26] MEDS ORDERED: ONDANSETRON 2MG/ML, 2ML ONE (11:06)
[2017-03-26] MEDS ORDERED: EPINEPHRINE 1 MG/ML, 1ML ONE (11:06)
[2017-03-26] MEDS ORDERED: PROPOFOL 100 ML IV ONE (12:24)
[2017-03-26] MEDS ORDERED: PROPOFOL 100 ML IV PRN (12:30)
[2017-03-26] MEDS ORDERED: LIDOCAINE-MPF 1%, 2ML ENDO PRN (14:00)
[2017-03-26] MEDS: POTASSIUM CHLORIDE 20 MEQ in SODIUM CHLORIDE 0.9% 1,000 ML IV SCH ×2 (14:15→22:15)
[2017-03-26] MEDS: PANTOPRAZOLE 40 MG IV IVPush SCH (14:39)
[2017-03-26] MEDS: PROPOFOL 100 ML IV PRN ×2 (15:20→21:22)
[2017-03-26 15:22] LABS: ABG COLLECTION SITE LEFT BRACHIAL
[2017-03-26] MEDS: ENOXAPARIN 40 MG/0.4 ML SQ SCH ×2 (21:17→21:21)
[2017-03-26] MEDS: ATORVASTATIN 80 MG TABLET PO SCH (21:18)
[2017-03-26] MEDS ORDERED: ALBUTEROL/IPRATROPIUM 2.5MG/0.5MG, 3 ML ONE (21:55)
[2017-03-26] MEDS: ALBUTEROL/IPRATROPIUM 2.5MG/0.5MG, 3 ML NPPB SCH (23:44)
[2017-03-27] MEDS: PANTOPRAZOLE 40 MG IV IVPush SCH ×2 (00:17→12:19)
[2017-03-27] MEDS: LEVETIRACETAM 1,000 MG in SODIUM CHLORIDE 0.9% 100 ML IV SCH ×2 (00:17→12:19)
[2017-03-27] MEDS: PROPOFOL 100 ML IV PRN ×3 (01:22→21:51)
[2017-03-27] MEDS: ALBUTEROL/IPRATROPIUM 2.5MG/0.5MG, 3 ML NPPB SCH ×6 (03:00→22:57)
[2017-03-27] MEDS: PIPERACILLIN/TAZO/PMX 3.375GM 50 ML IV SCH ×4 (03:34→20:31)
[2017-03-27 04:30] VITALS: BP 99/50
[2017-03-27 04:39] LABS: ABG COLLECTION SITE LEFT RADIAL
[2017-03-27 04:40] LABS: COLLATERAL CIRCULATION TESTING NORMAL
[2017-03-27 04:53] LABS: BLOOD UREA NITROGEN 26 mg/dL (7-18)
[2017-03-27] MEDS: methylPREDNISolone SOD SUCC 40 MG/ML IVPush SCH ×3 (05:05→21:51)
[2017-03-27] MEDS: POTASSIUM CHLORIDE 20 MEQ in SODIUM CHLORIDE 0.9% 1,000 ML IV SCH ×2 (06:45→20:29)
[2017-03-27] MEDS: ISOSORBIDE MONONITRATE ER 30 MG TABLET PO SCH (09:00)
[2017-03-27] MEDS: METOPROLOL TARTRATE 25 MG TABLET PO SCH ×2 (09:00→20:32)
[2017-03-27] MEDS: TOPIRAMATE 25 MG TABLET PO SCH ×2 (09:10→20:31)
[2017-03-27] MEDS: ENOXAPARIN 40 MG/0.4 ML SQ SCH (18:16)
[2017-03-27] MEDS: ATORVASTATIN 80 MG TABLET PO SCH (20:31)
[2017-03-28] MEDS: PANTOPRAZOLE 40 MG IV IVPush SCH ×2 (00:17→12:55)
[2017-03-28] MEDS: LEVETIRACETAM 1,000 MG in SODIUM CHLORIDE 0.9% 100 ML IV SCH ×2 (00:18→12:56)
[2017-03-28] MEDS: PIPERACILLIN/TAZO/PMX 3.375GM 50 ML IV SCH ×4 (03:07→21:30)
[2017-03-28] MEDS: ALBUTEROL/IPRATROPIUM 2.5MG/0.5MG, 3 ML NPPB SCH ×6 (03:38→21:45)
[2017-03-28] MEDS: POTASSIUM CHLORIDE 20 MEQ in SODIUM CHLORIDE 0.9% 1,000 ML IV SCH (05:05)
[2017-03-28 05:16] LABS: BLOOD UREA NITROGEN 23 mg/dL (7-18)
[2017-03-28 06:02] LABS: ABG COLLECTION SITE LEFT RADIAL; COLLATERAL CIRCULATION TESTING NORMAL
[2017-03-28] MEDS: methylPREDNISolone SOD SUCC 40 MG/ML IVPush SCH ×3 (06:26→21:37)
[2017-03-28] MEDS ORDERED: FUROSEMIDE 20 MG/2 ML IV ONE (08:00)
[2017-03-28] MEDS ORDERED: POTASSIUM CHLORIDE 20 MEQ TAB.ER.PRT PO ONE (08:00)
[2017-03-28] MEDS: ISOSORBIDE MONONITRATE ER 30 MG TABLET PO SCH (09:15)
[2017-03-28] MEDS: METOPROLOL TARTRATE 25 MG TABLET PO SCH ×2 (09:15→21:30)
[2017-03-28] MEDS: TOPIRAMATE 25 MG TABLET PO SCH ×2 (09:15→21:30)
[2017-03-28] MEDS: PROPOFOL 100 ML IV PRN (13:15)
[2017-03-28] MEDS ORDERED: EPINEPHRINE 1 MG/ML, 1ML ONE ×2 (17:44→17:45)
[2017-03-28] MEDS ORDERED: LIDOCAINE/PF 1%, 30ML ONE (17:44)
[2017-03-28] MEDS ORDERED: MIDAZOLAM 1 MG/ML, 5ML ONE (17:50)
[2017-03-28] MEDS ORDERED: LIDOCAINE/PF 1.5%-EPI 1:200K, 30ML ONE (18:16)
[2017-03-28] MEDS: ATORVASTATIN 80 MG TABLET PO SCH (21:30)
[2017-03-28] MEDS: ENOXAPARIN 40 MG/0.4 ML SQ SCH (21:30)
[2017-03-29] MEDS ORDERED: DOCUSATE 50 MG/5 ML, 10ML UDC PO PRN
[2017-03-29] MEDS: LEVETIRACETAM 1,000 MG in SODIUM CHLORIDE 0.9% 100 ML IV SCH (00:51)
[2017-03-29] MEDS: PANTOPRAZOLE 40 MG IV IVPush SCH ×2 (00:57→12:28)
[2017-03-29] MEDS: PIPERACILLIN/TAZO/PMX 3.375GM 50 ML IV SCH (03:19)
[2017-03-29 04:48] LABS: BLOOD UREA NITROGEN 20 mg/dL (7-18)
[2017-03-29] MEDS: ALBUTEROL/IPRATROPIUM 2.5MG/0.5MG, 3 ML NPPB SCH ×2 (06:21→10:31)
[2017-03-29] MEDS: methylPREDNISolone SOD SUCC 40 MG/ML IVPush SCH ×2 (07:23→17:01)
[2017-03-29] MEDS: ISOSORBIDE MONONITRATE ER 30 MG TABLET PO SCH (09:00)
[2017-03-29] MEDS: TOPIRAMATE 25 MG TABLET PO SCH ×2 (09:25→20:29)
[2017-03-29] MEDS: METOPROLOL TARTRATE 25 MG TABLET PO SCH ×2 (09:25→20:29)
[2017-03-29] MEDS: LEVETIRACETAM 100 MG/ML ORAL SOL GT SCH (12:41)
[2017-03-29] MEDS: DIPHENHYDRAMINE 25 MG CAPSULE PO PRN (12:57)
[2017-03-29] MEDS ORDERED: ALBUTEROL/IPRATROPIUM 2.5MG/0.5MG, 3 ML NPPB PRN (16:00)
[2017-03-29] MEDS: ASPIRIN 81 MG TABLET CHEW PO SCH (19:30)
[2017-03-29 19:45] VITALS: BP 108/62
[2017-03-29] MEDS: ATORVASTATIN 80 MG TABLET PO SCH (20:29)
[2017-03-29] MEDS: ENOXAPARIN 40 MG/0.4 ML SQ SCH (20:29)
[2017-03-30] MEDS: PANTOPRAZOLE 40 MG IV IVPush SCH ×2 (00:46→13:23)
[2017-03-30] MEDS: LEVETIRACETAM 100 MG/ML ORAL SOL GT SCH ×2 (00:46→13:23)
[2017-03-30] MEDS: DIPHENHYDRAMINE 25 MG CAPSULE PO PRN ×3 (00:54→21:38)
[2017-03-30 01:00] VITALS: BP 114/65
[2017-03-30] MEDS: methylPREDNISolone SOD SUCC 40 MG/ML IVPush SCH ×2 (05:30→18:16)
[2017-03-30 06:54] LABS: ABG COLLECTION SITE LEFT RADIAL; COLLATERAL CIRCULATION TESTING NORMAL
[2017-03-30 07:12] LABS: BLOOD UREA NITROGEN 26 mg/dL (7-18)
[2017-03-30] MEDS: ASPIRIN 81 MG TABLET CHEW PO SCH (09:27)
[2017-03-30] MEDS: CLOPIDOGREL 75 MG TABLET PO SCH (09:27)
[2017-03-30] MEDS: TOPIRAMATE 25 MG TABLET PO SCH ×2 (09:27→21:29)
[2017-03-30] MEDS: ISOSORBIDE MONONITRATE ER 30 MG TABLET PO SCH (09:28)
[2017-03-30] MEDS: METOPROLOL TARTRATE 25 MG TABLET PO SCH ×2 (09:28→21:00)
[2017-03-30 09:30] VITALS: BP 97/60
[2017-03-30 14:11] VITALS: BP 100/59
[2017-03-30 18:40] VITALS: BP 101/56
[2017-03-30] MEDS: ATORVASTATIN 80 MG TABLET PO SCH (21:28)
[2017-03-30] MEDS: ENOXAPARIN 40 MG/0.4 ML SQ SCH (21:30)
[2017-03-31] MEDS: PANTOPRAZOLE 40 MG IV IVPush SCH ×3 (00:26→23:50)
[2017-03-31] MEDS: LEVETIRACETAM 100 MG/ML ORAL SOL GT SCH ×3 (00:26→23:50)
[2017-03-31 01:35] VITALS: BP 108/63
[2017-03-31] MEDS: methylPREDNISolone SOD SUCC 40 MG/ML IVPush SCH ×2 (04:57→18:28)
[2017-03-31 07:50] VITALS: BP 119/77
[2017-03-31] MEDS: ISOSORBIDE MONONITRATE ER 30 MG TABLET PO SCH (09:00)
[2017-03-31] MEDS: CLOPIDOGREL 75 MG TABLET PO SCH (10:14)
[2017-03-31] MEDS: METOPROLOL TARTRATE 25 MG TABLET PO SCH ×2 (10:14→20:41)
[2017-03-31] MEDS: ASPIRIN 81 MG TABLET CHEW PO SCH (10:14)
[2017-03-31] MEDS: TOPIRAMATE 25 MG TABLET PO SCH ×2 (10:14→20:40)
[2017-03-31] MEDS: DIPHENHYDRAMINE 25 MG CAPSULE PO PRN ×2 (10:27→20:39)
[2017-03-31 12:52] VITALS: BP 128/82
[2017-03-31 20:30] VITALS: BP 114/70
[2017-03-31] MEDS: ATORVASTATIN 80 MG TABLET PO SCH (20:39)
[2017-03-31] MEDS: ENOXAPARIN 40 MG/0.4 ML SQ SCH (20:40)
[2017-04-01 03:21] VITALS: BP 117/68
[2017-04-01] MEDS: methylPREDNISolone SOD SUCC 40 MG/ML IVPush SCH ×2 (05:12→17:23)
[2017-04-01 07:03] VITALS: BP 109/71
[2017-04-01 07:04] LABS: ABG COLLECTION SITE LEFT RADIAL; COLLATERAL CIRCULATION TESTING NORMAL
[2017-04-01 07:18] LABS: BLOOD UREA NITROGEN 20 mg/dL (7-18)
[2017-04-01] MEDS: ASPIRIN 81 MG TABLET CHEW PO SCH (07:48)
[2017-04-01] MEDS: ISOSORBIDE MONONITRATE ER 30 MG TABLET PO SCH (07:48)
[2017-04-01] MEDS: METOPROLOL TARTRATE 25 MG TABLET PO SCH ×2 (07:48→20:42)
[2017-04-01] MEDS: CLOPIDOGREL 75 MG TABLET PO SCH (07:48)
[2017-04-01] MEDS: TOPIRAMATE 25 MG TABLET PO SCH ×2 (07:48→20:41)
[2017-04-01] MEDS: DIPHENHYDRAMINE 25 MG CAPSULE PO PRN ×3 (09:10→20:46)
[2017-04-01] MEDS: PANTOPRAZOLE 40 MG IV IVPush SCH (11:14)
[2017-04-01] MEDS: LEVETIRACETAM 100 MG/ML ORAL SOL GT SCH (11:14)
[2017-04-01 14:26] VITALS: BP 110/66
[2017-04-01 20:24] VITALS: BP 107/61
[2017-04-01] MEDS: ATORVASTATIN 80 MG TABLET PO SCH (20:40)
[2017-04-01] MEDS: ENOXAPARIN 40 MG/0.4 ML SQ SCH (20:42)
[2017-04-02] MEDS: LEVETIRACETAM 100 MG/ML ORAL SOL GT SCH ×2 (00:05→12:52)
[2017-04-02] MEDS: PANTOPRAZOLE 40 MG IV IVPush SCH ×2 (00:05→12:52)
[2017-04-02 00:10] VITALS: BP 98/61
[2017-04-02] MEDS: methylPREDNISolone SOD SUCC 40 MG/ML IVPush SCH (05:29)
[2017-04-02 08:33] VITALS: BP 116/72
[2017-04-02] MEDS: ISOSORBIDE MONONITRATE ER 30 MG TABLET PO SCH (10:03)
[2017-04-02] MEDS: ASPIRIN 81 MG TABLET CHEW PO SCH (10:03)
[2017-04-02] MEDS: METOPROLOL TARTRATE 25 MG TABLET PO SCH ×2 (10:03→20:51)
[2017-04-02] MEDS: CLOPIDOGREL 75 MG TABLET PO SCH (10:03)
[2017-04-02] MEDS: TOPIRAMATE 25 MG TABLET PO SCH ×2 (10:04→20:50)
[2017-04-02] MEDS: DIPHENHYDRAMINE 25 MG CAPSULE PO PRN (12:52)
[2017-04-02 15:18] VITALS: BP 115/73
[2017-04-02 19:41] VITALS: BP 99/61
[2017-04-02] MEDS: ATORVASTATIN 80 MG TABLET PO SCH (20:50)
[2017-04-02] MEDS: ENOXAPARIN 40 MG/0.4 ML SQ SCH (20:53)
[2017-04-03] MEDS: PANTOPRAZOLE 40 MG IV IVPush SCH ×2 (00:15→12:24)
[2017-04-03] MEDS: DIPHENHYDRAMINE 25 MG CAPSULE PO PRN ×2 (00:15→09:23)
[2017-04-03] MEDS: LEVETIRACETAM 100 MG/ML ORAL SOL GT SCH ×2 (00:15→12:24)
[2017-04-03 00:57] VITALS: BP 100/65
[2017-04-03 07:59] VITALS: BP 110/71
[2017-04-03] MEDS: ISOSORBIDE MONONITRATE ER 30 MG TABLET PO SCH (08:49)
[2017-04-03] MEDS: ASPIRIN 81 MG TABLET CHEW PO SCH (09:06)
[2017-04-03] MEDS: TOPIRAMATE 25 MG TABLET PO SCH (09:07)
[2017-04-03] MEDS: CLOPIDOGREL 75 MG TABLET PO SCH (09:07)
[2017-04-03] MEDS: METOPROLOL TARTRATE 25 MG TABLET PO SCH (09:07)
[2017-04-03] MEDS ORDERED: PRED10TA PO (14:28)
[2017-04-03] MEDS ORDERED: ISOS10TA2 PO (14:28)
[2017-04-03] MEDS ORDERED: FURO-92 PO (14:28)
[2017-04-03] MEDS ORDERED: FUROSEMIDE 40 MG TABLET PO SCH (14:30)
[2017-04-03] MEDS ORDERED: FAMO-79 PO (14:33)
[2017-04-03 16:00] VITALS: BP 110/68
== END 2017-04-03 19:30 | disposition home health service (06) | DRG 871 ==
LOC: ED 21:29 → CCU 22:12 → 4WST 03-19 14:37 → 3NW 03-25 18:11 → CCU 03-26 12:35 → 3NW 03-29 13:57
PROVIDERS: ADMIT Internal Medicine; ATTEND Internal Medicine
PROC: 5A1945Z Respiratory Ventilation, 24-96 Consecutive Hours (ICD-10-PCS; 2017-03-16)
PROC: 0BH17EZ Insertion of Endotracheal Airway into Trachea, Via Natural or Artificial Opening (ICD-10-PCS; 2017-03-16)
PROC: 0CDWXZ1 Extraction of Upper Tooth, Multiple, External Approach (ICD-10-PCS; 2017-03-22)
PROC: 0CBR8ZX Excision of Epiglottis, Via Natural or Artificial Opening Endoscopic, Diagnostic (ICD-10-PCS; 2017-03-23)
PROC: 0CBV8ZX Excision of Left Vocal Cord, Via Natural or Artificial Opening Endoscopic, Diagnostic (ICD-10-PCS; principal; 2017-03-23 12:00)
PROC: 0DB68ZX Excision of Stomach, Via Natural or Artificial Opening Endoscopic, Diagnostic (ICD-10-PCS; 2017-03-26)
PROC: 0DH63UZ Insertion of Feeding Device into Stomach, Percutaneous Approach (ICD-10-PCS; 2017-03-26)
PROC: 3E1G88Z Irrigation of Upper GI using Irrigating Substance, Via Natural or Artificial Opening Endoscopic (ICD-10-PCS; 2017-03-26)
DX: A41.52 Sepsis due to Pseudomonas (principal); J96.21 Acute and chronic respiratory failure with hypoxia; J96.22 Acute and chronic respiratory failure with hypercapnia; J15.1 Pneumonia due to Pseudomonas; J69.0 Pneumonitis due to inhalation of food and vomit; Z99.11 Dependence on respirator [ventilator] status; J44.1 Chronic obstructive pulmonary disease with (acute) exacerbation; J44.0 Chronic obstructive pulmonary disease with (acute) lower respiratory infection; I50.42 Chronic combined systolic (congestive) and diastolic (congestive) heart failure; E46 Unspecified protein-calorie malnutrition; C32.9 Malignant neoplasm of larynx, unspecified; Y95 Nosocomial condition; I11.0 Hypertensive heart disease with heart failure; D64.9 Anemia, unspecified; D69.6 Thrombocytopenia, unspecified; E66.9 Obesity, unspecified; E78.5 Hyperlipidemia, unspecified; E87.6 Hypokalemia; F17.200 Nicotine dependence, unspecified, uncomplicated; G40.909 Epilepsy, unspecified, not intractable, without status epilepticus; G62.9 Polyneuropathy, unspecified; I25.10 Atherosclerotic heart disease of native coronary artery without angina pectoris; I27.81 Cor pulmonale (chronic); I73.9 Peripheral vascular disease, unspecified; K02.9 Dental caries, unspecified; K25.9 Gastric ulcer, unspecified as acute or chronic, without hemorrhage or perforation; K44.9 Diaphragmatic hernia without obstruction or gangrene; R13.12 Dysphagia, oropharyngeal phase; Z51.5 Encounter for palliative care; Z66 Do not resuscitate; Z85.21 Personal history of malignant neoplasm of larynx; Z91.14 Patient's other noncompliance with medication regimen; Z68.34 Body mass index [BMI] 34.0-34.9, adult; Z95.1 Presence of aortocoronary bypass graft; I25.2 Old myocardial infarction; Z98.1 Arthrodesis status; Z99.81 Dependence on supplemental oxygen
CPT/HCPCS: 36415; 36600; 70100; 70491; 71010; 74230; 74340; 77334; 80048; 80053; 82607; 82746; 82803; 82962; 83605; 83735; 84100; 84439; 84443; 84478; 84484; 85014; 85018; 85025; 85610; 87040; 87070; 87077; 87081; 87186; 87205; 87324; 88304; 88305; 93005; 94002; 94003; 94150; 94640; 96365; 96366; 96368; 96375; B4087; J0171; J0690; J1100; J1650; J1953; J2250; J2405; J2543; J2550; J2704; J3010; J3370; J3480; J3490; J7620; Q9967; C9113; J0330; J1200; J1940; J2310; J2920; J2930; J3475; J7030; J7040; J7050; J7121; J7512; Q0163

== ENCOUNTER 2017-04-14 10:10 | Inpatient (IN) | payer MEDICARE, MEDICAID ==
[~2017-04-14] VITALS: Ht 170.2 cm; Wt 87.1 kg
[~2017-04-14 10:10] MED LIST changes: -ETOMIDATE 20 MG/10 ML ONE; +FAMO-79 PO; +FURO-92 PO; +ISOS10TA2 PO; +PRED10TA PO; -PROPOFOL 10 MG/ML, 100ML IV ONE; -SUCCINYLCHOLINE 20 MG/ML, 10ML ONE
[2017-04-14] MEDS ORDERED: SODIUM CHLORIDE 0.9% 1,000 ML IV ONE (10:12)
[2017-04-14] MEDS ORDERED: methylPREDNISolone SOD SUCC 125 MG/2 ML IVP ONE (10:30)
[2017-04-14] MEDS ORDERED: PLEASE ENTER HEIGHT AND WEIGHT MC SCH (10:30)
[2017-04-14] MEDS ORDERED: SODIUM CHLORIDE FLUSH 10ML SYR IVF ONE (10:30)
[2017-04-14] MEDS ORDERED: ALBUTEROL SULFATE 2.5 MG/3 ML ONE ×2 (10:31→21:04)
[2017-04-14] MEDS ORDERED: methylPREDNISolone SOD SUCC 125 MG/2 ML ONE (10:34)
[2017-04-14 10:47] LABS: BLOOD UREA NITROGEN 15 mg/dL (7-18)
[2017-04-14 10:51] LABS: IS PT STATUS REG ER OR PRE ER? YES
[2017-04-14] MEDS: PIPERACILLIN/TAZO/PMX 3.375GM 50 ML IV SCH ×2 (12:00→21:40)
[2017-04-14] MEDS ORDERED: POLYETHYLENE GLYCOL 17 GM PACKET PO PRN (12:00)
[2017-04-14] MEDS: HEPARIN 5,000 UNITS/ML, 1ML SQ SCH ×2 (12:00→21:33)
[2017-04-14 12:07] VITALS: BP 113/61
[2017-04-14 13:03] VITALS: BP 108/59
[2017-04-14] MEDS ORDERED: LIDOCAINE/PF 1%, 30ML ONE (13:28)
[2017-04-14] MEDS ORDERED: EPINEPHRINE 1 MG/ML, 1ML ONE (13:28)
[2017-04-14] MEDS ORDERED: MIDAZOLAM 1 MG/ML, 5ML ONE (13:44)
[2017-04-14] MEDS ORDERED: CEFAZOLIN 1,000 MG ONE (13:44)
[2017-04-14] MEDS ORDERED: ALBUTEROL/IPRATROPIUM 2.5MG/0.5MG, 3 ML ONE (13:49)
[2017-04-14] MEDS ORDERED: DEXMEDETOMIDINE 200 MCG/2 ML ONE (13:50)
[2017-04-14] MEDS ORDERED: LIDOCAINE 1%-EPI 1:100K, 30ML INFIL ONE (14:01)
[2017-04-14] MEDS ORDERED: LIDOCAINE 4% TOPICAL SOLUTION 50 ML TP ONE (14:02)
[2017-04-14] MEDS: TEMPLATE NON-FORMULARY MED. (Albuterol Sulfate (Ventolin Hfa) 2 PUFFS) INH SCH ×2 (16:00→21:18)
[2017-04-14] MEDS: LACTOBACILLUS 1GM/ PACKET GT SCH ×2 (16:00→21:39)
[2017-04-14 17:52] LABS: ABG COLLECTION SITE LEFT RADIAL; COLLATERAL CIRCULATION TESTING NORMAL
[2017-04-14] MEDS ORDERED: ALBUTEROL SULFATE 2.5MG/0.5ML NPPB SCH (21:00)
[2017-04-14] MEDS: METOPROLOL TARTRATE 25 MG TABLET GT SCH (21:15)
[2017-04-14] MEDS ORDERED: ALBUTEROL SULFATE 2.5 MG/3 ML NPPB SCH (21:22)
[2017-04-14] MEDS: TOPIRAMATE 25 MG TABLET PO SCH (21:33)
[2017-04-14] MEDS: FUROSEMIDE 40 MG TABLET PO SCH (21:33)
[2017-04-14] MEDS: methylPREDNISolone SOD SUCC 125 MG/2 ML IVPush SCH (21:33)
[2017-04-14] MEDS: GABAPENTIN 300 MG CAPSULE PO SCH (21:34)
[2017-04-14] MEDS: LEVETIRACETAM 500 MG TABLET PO SCH (21:34)
[2017-04-14] MEDS: ATORVASTATIN 80 MG TABLET PO SCH (21:34)
[2017-04-14] MEDS: ALBUTEROL SULFATE 2.5 MG/3 ML NPPB SCH (22:08)
[2017-04-15] MEDS ORDERED: LIDOCAINE-MPF 1%, 2ML INFIL PRN
[2017-04-15 04:00] VITALS: BP 104/50
[2017-04-15] MEDS: HEPARIN 5,000 UNITS/ML, 1ML SQ SCH ×2 (04:30→16:26)
[2017-04-15] MEDS: PIPERACILLIN/TAZO/PMX 3.375GM 50 ML IV SCH ×3 (04:30→16:25)
[2017-04-15] MEDS: methylPREDNISolone SOD SUCC 125 MG/2 ML IVPush SCH ×3 (04:30→21:03)
[2017-04-15 04:49] LABS: BLOOD UREA NITROGEN 12 mg/dL (7-18)
[2017-04-15] MEDS: ALBUTEROL SULFATE 2.5 MG/3 ML NPPB SCH ×4 (07:13→19:26)
[2017-04-15] MEDS: TEMPLATE NON-FORMULARY MED. (Tiotropium Br/Olodaterol HCl (Stiolto Respimat Inhal Spray) 2 INH SCH (08:24)
[2017-04-15] MEDS: FUROSEMIDE 40 MG TABLET PO SCH ×2 (09:33→21:04)
[2017-04-15] MEDS: GABAPENTIN 300 MG CAPSULE PO SCH ×2 (09:35→21:05)
[2017-04-15] MEDS: LEVETIRACETAM 500 MG TABLET PO SCH ×2 (09:35→21:04)
[2017-04-15] MEDS: METOPROLOL TARTRATE 25 MG TABLET GT SCH ×2 (09:35→21:04)
[2017-04-15] MEDS: MULTIVITAMINS/MINERALS TABLET PO SCH (09:35)
[2017-04-15] MEDS: TOPIRAMATE 25 MG TABLET PO SCH ×2 (09:35→21:05)
[2017-04-15] MEDS: LACTOBACILLUS 1GM/ PACKET GT SCH ×3 (09:35→21:04)
[2017-04-15] MEDS: MEROPENEM 1 GM in SODIUM CHLORIDE 0.9% 100 ML IV SCH (19:10)
[2017-04-15] MEDS: ATORVASTATIN 80 MG TABLET PO SCH (21:04)
[2017-04-15] MEDS: ENOXAPARIN 100 MG/ML SQ SCH (21:04)
[2017-04-15] MEDS ORDERED: PROPOFOL 100 ML IV PRN (22:30)
[2017-04-16] MEDS: MEROPENEM 1 GM in SODIUM CHLORIDE 0.9% 100 ML IV SCH ×3 (02:57→18:24)
[2017-04-16 04:00] VITALS: BP 117/72
[2017-04-16] MEDS: methylPREDNISolone SOD SUCC 125 MG/2 ML IVPush SCH ×3 (04:08→20:01)
[2017-04-16 05:35] LABS: ASPARTATE AMINO TRANSFERASE 11 U/L (15-37); BLOOD UREA NITROGEN 18 mg/dL (7-18)
[2017-04-16] MEDS: ALBUTEROL SULFATE 2.5 MG/3 ML NPPB SCH ×4 (06:55→20:10)
[2017-04-16] MEDS: TEMPLATE NON-FORMULARY MED. (Tiotropium Br/Olodaterol HCl (Stiolto Respimat Inhal Spray) 2 INH SCH (09:00)
[2017-04-16] MEDS: METOPROLOL TARTRATE 25 MG TABLET GT SCH ×2 (09:24→20:02)
[2017-04-16] MEDS: LACTOBACILLUS 1GM/ PACKET GT SCH ×3 (09:24→20:03)
[2017-04-16] MEDS: ENOXAPARIN 100 MG/ML SQ SCH ×2 (09:24→20:51)
[2017-04-16] MEDS: LEVETIRACETAM 500 MG TABLET PO SCH ×2 (09:24→20:02)
[2017-04-16] MEDS: TOPIRAMATE 25 MG TABLET PO SCH ×2 (09:25→20:02)
[2017-04-16] MEDS: FUROSEMIDE 40 MG TABLET PO SCH ×2 (09:25→20:03)
[2017-04-16] MEDS: GABAPENTIN 300 MG CAPSULE PO SCH ×2 (09:25→20:01)
[2017-04-16] MEDS: MULTIVITAMINS/MINERALS TABLET PO SCH (09:25)
[2017-04-16] MEDS: hydrOXyzine 50MG TABLET PO PRN ×2 (09:26→20:03)
[2017-04-16] MEDS ORDERED: POTASSIUM CHLORIDE 10% 40 MEQ/30 ML UDC PO ONE (13:00)
[2017-04-16 16:31] VITALS: BP 105/66
[2017-04-16 20:00] VITALS: BP 108/65
[2017-04-16] MEDS: ATORVASTATIN 80 MG TABLET PO SCH (20:02)
[2017-04-17 00:45] VITALS: BP 97/57
[2017-04-17] MEDS ORDERED: MORPHINE SULFATE 4 MG/ML, 1ML ONE ×2 (02:20→06:35)
[2017-04-17] MEDS: MEROPENEM 1 GM in SODIUM CHLORIDE 0.9% 100 ML IV SCH ×3 (02:25→18:57)
[2017-04-17] MEDS: morphine SULFATE 10 MG/ML, 1ML IVPush PRN ×2 (02:25→06:38)
[2017-04-17] MEDS: methylPREDNISolone SOD SUCC 125 MG/2 ML IVPush SCH ×3 (03:57→22:47)
[2017-04-17 04:20] VITALS: BP 135/83
[2017-04-17] MEDS: ONDANSETRON 2MG/ML, 2ML IVPush PRN (05:32)
[2017-04-17] MEDS: ALBUTEROL SULFATE 2.5 MG/3 ML NPPB SCH ×4 (06:00→19:33)
[2017-04-17 07:38] VITALS: BP 138/77
[2017-04-17 08:57] LABS: ASPARTATE AMINO TRANSFERASE 6 U/L (15-37); BLOOD UREA NITROGEN 24 mg/dL (7-18)
[2017-04-17] MEDS: TEMPLATE NON-FORMULARY MED. (Tiotropium Br/Olodaterol HCl (Stiolto Respimat Inhal Spray) 2 INH SCH (09:00)
[2017-04-17] MEDS: MULTIVITAMINS/MINERALS TABLET PO SCH (10:01)
[2017-04-17] MEDS: LACTOBACILLUS 1GM/ PACKET GT SCH ×3 (10:01→22:47)
[2017-04-17] MEDS: ENOXAPARIN 100 MG/ML SQ SCH ×2 (10:01→22:47)
[2017-04-17] MEDS: METOPROLOL TARTRATE 25 MG TABLET GT SCH ×2 (10:01→21:00)
[2017-04-17] MEDS: FUROSEMIDE 40 MG TABLET PO SCH ×2 (10:01→21:00)
[2017-04-17] MEDS: GABAPENTIN 300 MG CAPSULE PO SCH ×2 (10:02→21:00)
[2017-04-17] MEDS: TOPIRAMATE 25 MG TABLET PO SCH ×2 (10:02→22:55)
[2017-04-17] MEDS: LEVETIRACETAM 500 MG TABLET PO SCH ×2 (10:02→21:00)
[2017-04-17 12:28] VITALS: BP 108/69
[2017-04-17 16:45] VITALS: BP 99/61
[2017-04-17] MEDS: hydrOXyzine 50MG TABLET PO PRN (18:24)
[2017-04-17 19:20] VITALS: BP 107/68
[2017-04-17] MEDS: ATORVASTATIN 80 MG TABLET PO SCH (21:00)
[2017-04-18 01:08] VITALS: BP 114/67
[2017-04-18] MEDS: MEROPENEM 1 GM in SODIUM CHLORIDE 0.9% 100 ML IV SCH ×3 (02:49→18:41)
[2017-04-18] MEDS: methylPREDNISolone SOD SUCC 125 MG/2 ML IVPush SCH ×2 (05:46→14:54)
[2017-04-18] MEDS: ALBUTEROL SULFATE 2.5 MG/3 ML NPPB SCH ×4 (07:15→19:18)
[2017-04-18 07:42] VITALS: BP 108/64
[2017-04-18] MEDS: TEMPLATE NON-FORMULARY MED. (Tiotropium Br/Olodaterol HCl (Stiolto Respimat Inhal Spray) 2 INH SCH (09:00)
[2017-04-18] MEDS: hydrOXyzine 50MG TABLET PO PRN (09:36)
[2017-04-18] MEDS: TOPIRAMATE 25 MG TABLET PO SCH ×2 (09:36→21:23)
[2017-04-18] MEDS: FUROSEMIDE 40 MG TABLET PO SCH ×2 (09:36→21:24)
[2017-04-18] MEDS: GABAPENTIN 300 MG CAPSULE PO SCH ×2 (09:36→21:23)
[2017-04-18] MEDS: ENOXAPARIN 80 MG/0.8 ML SQ SCH ×2 (09:37→21:17)
[2017-04-18] MEDS: MULTIVITAMINS/MINERALS TABLET PO SCH (09:37)
[2017-04-18] MEDS: METOPROLOL TARTRATE 25 MG TABLET GT SCH ×2 (09:37→21:24)
[2017-04-18] MEDS: LACTOBACILLUS 1GM/ PACKET GT SCH ×3 (09:41→21:24)
[2017-04-18] MEDS: LEVETIRACETAM 500 MG TABLET PO SCH ×2 (09:41→21:24)
[2017-04-18 13:24] VITALS: BP 104/66
[2017-04-18 19:01] VITALS: BP 111/70
[2017-04-18] MEDS: ATORVASTATIN 80 MG TABLET PO SCH (21:23)
[2017-04-19] MEDS: methylPREDNISolone SOD SUCC 125 MG/2 ML IVPush SCH ×2 (02:54→15:53)
[2017-04-19] MEDS: MEROPENEM 1 GM in SODIUM CHLORIDE 0.9% 100 ML IV SCH ×3 (02:54→20:03)
[2017-04-19 02:58] VITALS: BP 105/60
[2017-04-19] MEDS: ALBUTEROL SULFATE 2.5 MG/3 ML NPPB SCH ×4 (06:48→20:13)
[2017-04-19 07:35] VITALS: BP 110/66
[2017-04-19] MEDS: TEMPLATE NON-FORMULARY MED. (Tiotropium Br/Olodaterol HCl (Stiolto Respimat Inhal Spray) 2 INH SCH (09:00)
[2017-04-19] MEDS: LACTOBACILLUS 1GM/ PACKET GT SCH ×3 (11:16→20:03)
[2017-04-19] MEDS: ATORVASTATIN 80 MG TABLET PO SCH (11:16)
[2017-04-19] MEDS: ENOXAPARIN 80 MG/0.8 ML SQ SCH ×2 (11:16→23:14)
[2017-04-19] MEDS: LEVETIRACETAM 500 MG TABLET PO SCH ×2 (11:16→20:03)
[2017-04-19] MEDS: GABAPENTIN 300 MG CAPSULE PO SCH ×2 (11:16→20:03)
[2017-04-19] MEDS: MULTIVITAMINS/MINERALS TABLET PO SCH (11:16)
[2017-04-19] MEDS: FUROSEMIDE 40 MG TABLET PO SCH ×2 (11:17→19:53)
[2017-04-19] MEDS: METOPROLOL TARTRATE 25 MG TABLET GT SCH ×2 (11:17→19:51)
[2017-04-19] MEDS: TOPIRAMATE 25 MG TABLET PO SCH ×2 (11:17→20:03)
[2017-04-19] MEDS: morphine SULFATE 10 MG/ML, 1ML IVPush PRN (11:19)
[2017-04-19] MEDS: hydrOXyzine 50MG TABLET PO PRN (15:53)
[2017-04-19 18:56] VITALS: BP 98/61
[2017-04-20 02:04] VITALS: BP 103/66
[2017-04-20] MEDS: MEROPENEM 1 GM in SODIUM CHLORIDE 0.9% 100 ML IV SCH ×3 (02:40→19:34)
[2017-04-20] MEDS: methylPREDNISolone SOD SUCC 125 MG/2 ML IVPush SCH ×2 (02:40→15:36)
[2017-04-20 06:03] LABS: BLOOD UREA NITROGEN 36 mg/dL (7-18)
[2017-04-20 06:30] VITALS: BP 113/78
[2017-04-20] MEDS: ALBUTEROL SULFATE 2.5 MG/3 ML NPPB SCH ×4 (06:45→19:20)
[2017-04-20] MEDS: TEMPLATE NON-FORMULARY MED. (Tiotropium Br/Olodaterol HCl (Stiolto Respimat Inhal Spray) 2 INH SCH (09:00)
[2017-04-20] MEDS: FUROSEMIDE 40 MG TABLET PO SCH ×2 (09:06→21:13)
[2017-04-20] MEDS: MULTIVITAMINS/MINERALS TABLET PO SCH (09:06)
[2017-04-20] MEDS: LACTOBACILLUS 1GM/ PACKET GT SCH ×3 (09:07→21:13)
[2017-04-20] MEDS: LEVETIRACETAM 500 MG TABLET PO SCH ×2 (09:07→21:13)
[2017-04-20] MEDS: METOPROLOL TARTRATE 25 MG TABLET GT SCH ×2 (09:07→21:00)
[2017-04-20] MEDS: TOPIRAMATE 25 MG TABLET PO SCH ×2 (09:07→21:13)
[2017-04-20] MEDS: GABAPENTIN 300 MG CAPSULE PO SCH ×2 (09:07→21:13)
[2017-04-20] MEDS: ENOXAPARIN 80 MG/0.8 ML SQ SCH ×2 (11:02→21:41)
[2017-04-20 13:32] VITALS: BP 97/62
[2017-04-20 18:56] VITALS: BP 110/72
[2017-04-20] MEDS: ATORVASTATIN 80 MG TABLET PO SCH (21:13)
[2017-04-21] MEDS: methylPREDNISolone SOD SUCC 125 MG/2 ML IVPush SCH ×2 (03:32→15:43)
[2017-04-21] MEDS: MEROPENEM 1 GM in SODIUM CHLORIDE 0.9% 100 ML IV SCH ×3 (03:33→21:25)
[2017-04-21 03:56] VITALS: BP 112/73
[2017-04-21 05:38] LABS: BLOOD UREA NITROGEN 39 mg/dL (7-18)
[2017-04-21 05:42] LABS: ASPARTATE AMINO TRANSFERASE 10 U/L (15-37)
[2017-04-21] MEDS: ALBUTEROL SULFATE 2.5 MG/3 ML NPPB SCH ×2 (07:00→11:00)
[2017-04-21 07:52] VITALS: BP 105/68
[2017-04-21] MEDS: METOPROLOL TARTRATE 25 MG TABLET GT SCH ×2 (08:17→21:00)
[2017-04-21] MEDS: TEMPLATE NON-FORMULARY MED. (Tiotropium Br/Olodaterol HCl (Stiolto Respimat Inhal Spray) 2 INH SCH (08:17)
[2017-04-21] MEDS: LEVETIRACETAM 500 MG TABLET PO SCH ×2 (10:18→21:32)
[2017-04-21] MEDS: TOPIRAMATE 25 MG TABLET PO SCH ×2 (10:19→21:31)
[2017-04-21] MEDS: MULTIVITAMINS/MINERALS TABLET PO SCH (10:19)
[2017-04-21] MEDS: GABAPENTIN 300 MG CAPSULE PO SCH ×2 (10:19→21:32)
[2017-04-21] MEDS: FUROSEMIDE 40 MG TABLET PO SCH ×2 (10:19→21:32)
[2017-04-21] MEDS: LACTOBACILLUS 1GM/ PACKET GT SCH ×3 (10:19→21:32)
[2017-04-21] MEDS: ENOXAPARIN 80 MG/0.8 ML SQ SCH ×2 (10:22→21:33)
[2017-04-21 14:30] VITALS: BP 118/72
[2017-04-21] MEDS: hydrOXyzine 50MG TABLET PO PRN (15:50)
[2017-04-21 20:13] VITALS: BP 97/56
[2017-04-21] MEDS: ATORVASTATIN 80 MG TABLET PO SCH (21:32)
[2017-04-22 03:26] VITALS: BP 104/68
[2017-04-22] MEDS: methylPREDNISolone SOD SUCC 125 MG/2 ML IVPush SCH ×2 (03:31→17:27)
[2017-04-22] MEDS: MEROPENEM 1 GM in SODIUM CHLORIDE 0.9% 100 ML IV SCH ×3 (03:32→22:00)
[2017-04-22] MEDS: morphine SULFATE 10 MG/ML, 1ML IVPush PRN (03:38)
[2017-04-22] MEDS: ONDANSETRON 2MG/ML, 2ML IVPush PRN (04:26)
[2017-04-22 04:49] LABS: ASPARTATE AMINO TRANSFERASE 14 U/L (15-37); BLOOD UREA NITROGEN 58 mg/dL (7-18)
[2017-04-22] MEDS: ALBUTEROL SULFATE 2.5 MG/3 ML NPPB SCH ×3 (07:00→13:55)
[2017-04-22 07:32] VITALS: BP 98/60
[2017-04-22] MEDS: TEMPLATE NON-FORMULARY MED. (Tiotropium Br/Olodaterol HCl (Stiolto Respimat Inhal Spray) 2 INH SCH (09:00)
[2017-04-22] MEDS: LEVETIRACETAM 500 MG TABLET PO SCH ×2 (10:09→22:34)
[2017-04-22] MEDS: TOPIRAMATE 25 MG TABLET PO SCH ×2 (10:09→22:33)
[2017-04-22] MEDS: MULTIVITAMINS/MINERALS TABLET PO SCH (10:10)
[2017-04-22] MEDS: GABAPENTIN 300 MG CAPSULE PO SCH ×2 (10:10→22:33)
[2017-04-22] MEDS: FUROSEMIDE 40 MG TABLET PO SCH ×2 (10:10→22:33)
[2017-04-22] MEDS: LACTOBACILLUS 1GM/ PACKET GT SCH ×3 (10:10→22:32)
[2017-04-22] MEDS: METOPROLOL TARTRATE 25 MG TABLET GT SCH ×2 (10:11→21:00)
[2017-04-22] MEDS: ENOXAPARIN 80 MG/0.8 ML SQ SCH ×2 (10:12→22:00)
[2017-04-22 14:29] VITALS: BP 82/48
[2017-04-22 19:42] VITALS: BP 116/74
[2017-04-22] MEDS ORDERED: FUROSEMIDE 20 MG/2 ML IV ONE (22:30)
[2017-04-22] MEDS: ATORVASTATIN 80 MG TABLET PO SCH (22:33)
[2017-04-22] MEDS: LEVETIRACETAM 1,000 MG in SODIUM CHLORIDE 0.9% 100 ML IV SCH (22:57)
[2017-04-23] MEDS ORDERED: PANTOPRAZOLE 80 MG in SODIUM CHLORIDE 0.9% 50 ML IV ONE
[2017-04-23 00:50] VITALS: BP 104/66
[2017-04-23] MEDS: PANTOPRAZOLE 80 MG in SODIUM CHLORIDE 0.9% 100 ML IV SCH ×2 (00:50→13:35)
[2017-04-23] MEDS: methylPREDNISolone SOD SUCC 125 MG/2 ML IVPush SCH ×2 (05:41→21:52)
[2017-04-23] MEDS: MEROPENEM 1 GM in SODIUM CHLORIDE 0.9% 100 ML IV SCH ×3 (05:41→21:52)
[2017-04-23 06:19] LABS: BLOOD UREA NITROGEN 87 mg/dL (7-18)
[2017-04-23 06:23] LABS: ASPARTATE AMINO TRANSFERASE 9 U/L (15-37)
[2017-04-23] MEDS: ALBUTEROL SULFATE 2.5 MG/3 ML NPPB SCH ×4 (06:35→21:00)
[2017-04-23 06:50] LABS: DIFF TOTAL CELLS COUNTED 100 CELL DIFF
[2017-04-23 06:52] LABS: POLYCHROMASIA 1+; VERIFY COUNTS? YES
[2017-04-23 06:53] LABS: ANISOCYTOSIS 1+; LARGE PLATELETS 1+
[2017-04-23 07:36] VITALS: BP 109/72
[2017-04-23] MEDS: MULTIVITAMINS/MINERALS TABLET PO SCH (09:00)
[2017-04-23] MEDS: LACTOBACILLUS 1GM/ PACKET GT SCH ×3 (09:00→21:00)
[2017-04-23] MEDS: GABAPENTIN 300 MG CAPSULE PO SCH ×2 (09:00→21:00)
[2017-04-23] MEDS: TEMPLATE NON-FORMULARY MED. (Tiotropium Br/Olodaterol HCl (Stiolto Respimat Inhal Spray) 2 INH SCH (09:00)
[2017-04-23] MEDS: SODIUM BICARBONATE 4.2%, 5ML NPPB SCH ×2 (09:50→15:10)
[2017-04-23] MEDS: LEVETIRACETAM 1,000 MG in SODIUM CHLORIDE 0.9% 100 ML IV SCH ×2 (10:17→21:45)
[2017-04-23 10:39] LABS: DIFF TOTAL CELLS COUNTED 100 CELL DIFF
[2017-04-23 10:41] LABS: ANISOCYTOSIS 1+; POLYCHROMASIA 1+; VERIFY COUNTS? YES
[2017-04-23 10:42] LABS: OVALOCYTES 1+
[2017-04-23 10:43] LABS: LARGE PLATELETS 1+
[2017-04-23] MEDS: METOPROLOL TARTRATE 25 MG TABLET GT SCH ×2 (11:23→21:00)
[2017-04-23] MEDS: TOPIRAMATE 25 MG TABLET PO SCH ×2 (11:25→21:53)
[2017-04-23] MEDS: SUCRALFATE 1 GM/10 ML UDC PEG SCH ×3 (11:25→21:53)
[2017-04-23 12:51] VITALS: BP 110/62
[2017-04-23] MEDS ORDERED: MIDAZOLAM 1 MG/ML, 5ML ONE (13:31)
[2017-04-23] MEDS ORDERED: FLUMAZENIL 0.1 MG/1 ML, 5ML ONE (13:32)
[2017-04-23] MEDS ORDERED: NALOXONE 1 MG/ML, 2ML ONE (13:32)
[2017-04-23] MEDS ORDERED: FENTANYL PF 100 MCG/2ML ONE (13:32)
[2017-04-23] MEDS: LORazepam 2 MG/ML, 1ML IVPush PRN (13:36)
[2017-04-23] MEDS ORDERED: LIDOCAINE 1%, 20ML ONE (14:12)
[2017-04-23] MEDS: FUROSEMIDE 20 MG/2 ML IV SCH (17:00)
[2017-04-23] MEDS: ACETYLCYSTEINE 10%, 4ML NPPB SCH (19:12)
[2017-04-23 19:56] VITALS: BP 97/55
[2017-04-23] MEDS: ATORVASTATIN 80 MG TABLET PO SCH (21:00)
[2017-04-23 22:10] VITALS: BP 75/44
[2017-04-23] MEDS: hydrOXyzine 50MG TABLET PO PRN (22:24)
[2017-04-23 22:27] VITALS: BP 88/56
[2017-04-24] VITALS (10 sets, daily range): BP systolic 82–104; BP diastolic 42–62
[2017-04-24] MEDS: PANTOPRAZOLE 80 MG in SODIUM CHLORIDE 0.9% 100 ML IV SCH ×3 (03:21→17:22)
[2017-04-24] MEDS: hydrOXyzine 50MG TABLET PO PRN ×2 (05:21→10:33)
[2017-04-24] MEDS: methylPREDNISolone SOD SUCC 125 MG/2 ML IVPush SCH (05:21)
[2017-04-24] MEDS: SUCRALFATE 1 GM/10 ML UDC PEG SCH ×4 (05:21→22:05)
[2017-04-24] MEDS: MEROPENEM 1 GM in SODIUM CHLORIDE 0.9% 100 ML IV SCH ×3 (06:10→22:05)
[2017-04-24] MEDS: ALBUTEROL SULFATE 2.5 MG/3 ML NPPB SCH ×4 (07:10→19:01)
[2017-04-24] MEDS: ACETYLCYSTEINE 10%, 4ML NPPB SCH ×4 (07:10→19:00)
[2017-04-24] MEDS: TEMPLATE NON-FORMULARY MED. (Tiotropium Br/Olodaterol HCl (Stiolto Respimat Inhal Spray) 2 INH SCH (09:00)
[2017-04-24] MEDS: LORazepam 2 MG/ML, 1ML IVPush PRN ×2 (10:14→23:08)
[2017-04-24] MEDS: LEVETIRACETAM 1,000 MG in SODIUM CHLORIDE 0.9% 100 ML IV SCH ×2 (10:14→21:27)
[2017-04-24 10:22] LABS: BLOOD UREA NITROGEN 54 mg/dL (7-18)
[2017-04-24 10:25] LABS: ASPARTATE AMINO TRANSFERASE 11 U/L (15-37)
[2017-04-24] MEDS: FUROSEMIDE 20 MG/2 ML IV SCH ×2 (11:47→17:21)
[2017-04-24] MEDS: LACTOBACILLUS 1GM/ PACKET GT SCH ×3 (11:48→22:06)
[2017-04-24] MEDS: METOPROLOL TARTRATE 25 MG TABLET GT SCH ×2 (11:49→21:00)
[2017-04-24] MEDS: MULTIVITAMINS/MINERALS TABLET PO SCH (11:49)
[2017-04-24] MEDS: GABAPENTIN 300 MG CAPSULE PO SCH ×2 (11:49→22:06)
[2017-04-24] MEDS: TOPIRAMATE 25 MG TABLET PO SCH ×2 (11:50→22:06)
[2017-04-24] MEDS ORDERED: SODIUM CHLORIDE 0.9% 500 ML IV SCH ×2 (14:00→17:00)
[2017-04-24] MEDS ORDERED: CISPLATIN IV SCH ×3 (15:00→16:00)
[2017-04-24] MEDS ORDERED: SODIUM CHLORIDE 0.9% IV SCH ×2 (15:00→16:00)
[2017-04-24] MEDS ORDERED: MANNITOL IV SCH ×3 (15:00→16:00)
[2017-04-24] MEDS ORDERED: MAGNESIUM SULFATE IV SCH (16:00)
[2017-04-24] MEDS ORDERED: [UNRECOGNIZED DRUG - OTHER] IV SCH (16:00)
[2017-04-24] MEDS ORDERED: FOSAPREPITANT 150 MG in SODIUM CHLORIDE 0.9% 145 ML IV ONE (17:00)
[2017-04-24] MEDS ORDERED: ONDANSETRON 16 MG, DEXAMETHASONE 12 MG in SODIUM CHLORIDE 0.9% 50 ML IVPB ONE (17:30)
[2017-04-24] MEDS: PANTOPRAZOLE 40 MG IV IVPush SCH (22:05)
[2017-04-24] MEDS: ATORVASTATIN 80 MG TABLET PO SCH (22:06)
[2017-04-25] VITALS (8 sets, daily range): BP systolic 97–110; BP diastolic 52–71
[2017-04-25] MEDS: MEROPENEM 1 GM in SODIUM CHLORIDE 0.9% 100 ML IV SCH ×3 (06:20→22:17)
[2017-04-25] MEDS: SUCRALFATE 1 GM/10 ML UDC PEG SCH ×4 (06:20→22:20)
[2017-04-25 07:04] LABS: ASPARTATE AMINO TRANSFERASE 10 U/L (15-37); BLOOD UREA NITROGEN 34 mg/dL (7-18)
[2017-04-25] MEDS: FUROSEMIDE 20 MG/2 ML IV SCH (07:36)
[2017-04-25] MEDS: PANTOPRAZOLE 40 MG IV IVPush SCH (07:36)
[2017-04-25] MEDS: ALBUTEROL SULFATE 2.5 MG/3 ML NPPB SCH ×4 (08:40→19:50)
[2017-04-25] MEDS: TEMPLATE NON-FORMULARY MED. (Tiotropium Br/Olodaterol HCl (Stiolto Respimat Inhal Spray) 2 INH SCH (09:00)
[2017-04-25] MEDS ORDERED: methylPREDNISolone SOD SUCC 40 MG/ML IVPush SCH (09:00)
[2017-04-25] MEDS: METOPROLOL TARTRATE 25 MG TABLET GT SCH ×3 (09:00→21:56)
[2017-04-25] MEDS: LACTOBACILLUS 1GM/ PACKET GT SCH ×3 (10:06→22:20)
[2017-04-25] MEDS: MULTIVITAMINS/MINERALS TABLET PO SCH (10:11)
[2017-04-25] MEDS: TOPIRAMATE 25 MG TABLET PO SCH ×2 (10:12→22:20)
[2017-04-25] MEDS: GABAPENTIN 300 MG CAPSULE PO SCH ×2 (10:12→22:20)
[2017-04-25] MEDS: LORazepam 2 MG/ML, 1ML IVPush PRN ×2 (11:03→16:13)
[2017-04-25] MEDS: LEVETIRACETAM 1,000 MG in SODIUM CHLORIDE 0.9% 100 ML IV SCH (11:36)
[2017-04-25] MEDS: PANTOPRAZOLE 20MG TABLET PO SCH (16:13)
[2017-04-25] MEDS: FUROSEMIDE 20 MG TABLET PO SCH (17:38)
[2017-04-25] MEDS: ATORVASTATIN 80 MG TABLET PO SCH (22:20)
[2017-04-25] MEDS: LEVETIRACETAM 500 MG TABLET PO SCH (22:41)
[2017-04-26 03:08] VITALS: BP 107/72
[2017-04-26] MEDS: MEROPENEM 1 GM in SODIUM CHLORIDE 0.9% 100 ML IV SCH ×3 (05:27→23:21)
[2017-04-26] MEDS: PANTOPRAZOLE 20MG TABLET PO SCH ×2 (05:31→16:22)
[2017-04-26] MEDS: SUCRALFATE 1 GM/10 ML UDC PEG SCH ×4 (05:31→21:06)
[2017-04-26] MEDS ORDERED: LEVO750T26 PO (06:35)
[2017-04-26] MEDS ORDERED: SUCR1ORA2 PEG (06:35)
[2017-04-26 07:51] VITALS: BP 98/62
[2017-04-26] MEDS: MULTIVITAMINS/MINERALS TABLET PO SCH (08:39)
[2017-04-26] MEDS: TOPIRAMATE 25 MG TABLET PO SCH ×2 (08:40→21:06)
[2017-04-26] MEDS: FUROSEMIDE 20 MG TABLET PO SCH ×2 (08:40→16:23)
[2017-04-26] MEDS: LEVETIRACETAM 500 MG TABLET PO SCH (08:40)
[2017-04-26] MEDS: LACTOBACILLUS 1GM/ PACKET GT SCH ×3 (08:40→21:06)
[2017-04-26] MEDS: GABAPENTIN 300 MG CAPSULE PO SCH (08:40)
[2017-04-26] MEDS: METOPROLOL TARTRATE 25 MG TABLET GT SCH ×2 (08:40→21:00)
[2017-04-26] MEDS: TEMPLATE NON-FORMULARY MED. (Tiotropium Br/Olodaterol HCl (Stiolto Respimat Inhal Spray) 2 INH SCH (08:41)
[2017-04-26] MEDS: ALBUTEROL SULFATE 2.5 MG/3 ML NPPB SCH ×3 (11:10→20:15)
[2017-04-26 13:16] VITALS: BP 97/67
[2017-04-26] MEDS: LORazepam 2 MG/ML, 1ML IVPush PRN (14:56)
[2017-04-26] MEDS ORDERED: PRED20TA PO (17:00)
[2017-04-26] MEDS: PANTOPRAZOLE 40 MG IV IVPush SCH (21:06)
[2017-04-26] MEDS: LEVETIRACETAM 100 MG/ML ORAL SOL PO SCH (21:06)
[2017-04-26] MEDS: ATORVASTATIN 80 MG TABLET PO SCH (21:06)
[2017-04-26] MEDS: GABAPENTIN 250 MG/5 ML ORAL SOL PO SCH (21:06)
[2017-04-27] MEDS: SUCRALFATE 1 GM/10 ML UDC PEG SCH (05:02)
[2017-04-27] MEDS: ALBUTEROL SULFATE 2.5 MG/3 ML NPPB SCH (06:00)
[2017-04-27 07:24] VITALS: BP 100/62
[2017-04-27] MEDS: MEROPENEM 1 GM in SODIUM CHLORIDE 0.9% 100 ML IV SCH (08:20)
[2017-04-27] MEDS ORDERED: predniSONE 5 MG/5 ML ORAL SOL PO SCH (09:00)
[2017-04-27] MEDS: PANTOPRAZOLE 40 MG IV IVPush SCH (09:41)
[2017-04-27] MEDS: LACTOBACILLUS 1GM/ PACKET GT SCH (09:41)
[2017-04-27] MEDS: METOPROLOL TARTRATE 25 MG TABLET GT SCH (09:41)
[2017-04-27] MEDS: FUROSEMIDE 20 MG TABLET PO SCH (09:41)
[2017-04-27] MEDS: LEVETIRACETAM 100 MG/ML ORAL SOL PO SCH (09:42)
[2017-04-27] MEDS: GABAPENTIN 250 MG/5 ML ORAL SOL PO SCH (09:42)
[2017-04-27] MEDS: MULTIVITAMINS/MINERALS TABLET PO SCH (09:42)
[2017-04-27] MEDS: TOPIRAMATE 25 MG TABLET PO SCH (09:43)
[2017-04-27] MEDS: hydrOXyzine 50MG TABLET PO PRN (09:44)
[2017-04-27] MEDS: TEMPLATE NON-FORMULARY MED. (Tiotropium Br/Olodaterol HCl (Stiolto Respimat Inhal Spray) 2 INH SCH (09:46)
== END 2017-04-27 10:35 | disposition left against medical advice (07) | DRG 3 ==
LOC: ED 10:41 → EDIP 11:03 → 3NW 11:52 → CCU 15:56 → 3NW 04-16 16:10
PROVIDERS: ADMIT Internal Medicine; ATTEND Internal Medicine
PROC: 0B110F4 Bypass Trachea to Cutaneous with Tracheostomy Device, Open Approach (ICD-10-PCS; principal; 2017-04-14 13:00)
PROC: 02HV33Z Insertion of Infusion Device into Superior Vena Cava, Percutaneous Approach (ICD-10-PCS; 2017-04-22)
PROC: B5181ZA Fluoroscopy of Superior Vena Cava using Low Osmolar Contrast, Guidance (ICD-10-PCS; 2017-04-22)
PROC: B548ZZA Ultrasonography of Superior Vena Cava, Guidance (ICD-10-PCS; 2017-04-22)
PROC: 06H03DZ Insertion of Intraluminal Device into Inferior Vena Cava, Percutaneous Approach (ICD-10-PCS; 2017-04-23)
PROC: 30233N1 Transfusion of Nonautologous Red Blood Cells into Peripheral Vein, Percutaneous Approach (ICD-10-PCS; 2017-04-23)
DX: J96.21 Acute and chronic respiratory failure with hypoxia (principal); I50.32 Chronic diastolic (congestive) heart failure; I82.91 Chronic embolism and thrombosis of unspecified vein; J44.1 Chronic obstructive pulmonary disease with (acute) exacerbation; R78.81 Bacteremia; K92.2 Gastrointestinal hemorrhage, unspecified; C32.9 Malignant neoplasm of larynx, unspecified; Z66 Do not resuscitate; D63.8 Anemia in other chronic diseases classified elsewhere; D69.6 Thrombocytopenia, unspecified; D72.829 Elevated white blood cell count, unspecified; G40.909 Epilepsy, unspecified, not intractable, without status epilepticus; I11.0 Hypertensive heart disease with heart failure; I25.10 Atherosclerotic heart disease of native coronary artery without angina pectoris; N28.1 Cyst of kidney, acquired; R13.10 Dysphagia, unspecified; Z72.0 Tobacco use; Z79.01 Long term (current) use of anticoagulants; Z80.9 Family history of malignant neoplasm, unspecified; Z86.718 Personal history of other venous thrombosis and embolism; Z87.01 Personal history of pneumonia (recurrent); Z87.11 Personal history of peptic ulcer disease; Z93.1 Gastrostomy status; Z95.1 Presence of aortocoronary bypass graft; Z99.81 Dependence on supplemental oxygen; Z88.8 Allergy status to other drugs, medicaments and biological substances; Z82.49 Family history of ischemic heart disease and other diseases of the circulatory system
CPT/HCPCS: 36415; 36569; 36600; 37191; 71010; 74022; 76700; 76937; 77001; 77290; 77300; 77336; 77386; 80048; 80053; 82040; 82803; 83605; 83735; 83880; 84484; 85014; 85018; 85025; 86850; 86900; 86923; 87040; 87077; 87081; 87186; 87205; 87324; 93005; 94640; 96361; 96374; 99156; 99157; J0171; J0690; J1100; J1453; J1644; J1650; J1953; J2185; J2250; J2405; J2543; J3010; J3490; J7512; J7608; J7613; J9060; C1751; C1760; C1880; C9113; J1940; J2060; J2150; J2270; J2310; J2920; J2930; J7030; J7040; J7050; P9016

== ENCOUNTER 2017-05-03 07:50 | Observation (INO) | payer MEDICARE, MEDICAID ==
[~2017-05-03] VITALS: Ht 175.3 cm; Wt 86.5 kg
[~2017-05-03 07:50] MED LIST changes: +LEVO750T26 PO; +PRED20TA PO; +SUCR1ORA2 PEG
[2017-05-03] MEDS ORDERED: ASPIRIN 81 MG TABLET EC PO SCH (08:53)
[2017-05-03 08:58] LABS: BLOOD UREA NITROGEN 22 mg/dL (7-18)
[2017-05-03] MEDS ORDERED: LEVETIRACETAM 500 MG TABLET PO SCH (09:00)
[2017-05-03] MEDS ORDERED: TOPIRAMATE 25 MG TABLET PO SCH (09:00)
[2017-05-03] MEDS ORDERED: hydrOXyzine 50MG TABLET PO PRN (09:00)
[2017-05-03] MEDS ORDERED: GABAPENTIN 300 MG CAPSULE PO SCH (09:00)
[2017-05-03] MEDS ORDERED: FAMOTIDINE 20 MG TABLET PO SCH (09:00)
[2017-05-03] MEDS ORDERED: FUROSEMIDE 40 MG TABLET PO SCH (09:00)
[2017-05-03 09:01] LABS: ASPARTATE AMINO TRANSFERASE 11 U/L (15-37)
[2017-05-03] MEDS: SODIUM CHLORIDE 0.9% 500 ML IV ONE ×2 (09:19→09:21)
[2017-05-03 09:25] VITALS: BP 97/62
[2017-05-03] MEDS ORDERED: GRANISETRON 1 MG, DEXAMETHASONE 10 MG in SODIUM CHLORIDE 0.9% 50 ML IV ONE (11:30)
[2017-05-03] MEDS ORDERED: FOSAPREPITANT 150 MG in SODIUM CHLORIDE 0.9% 145 ML IV ONE (11:30)
[2017-05-03] MEDS ORDERED: [UNRECOGNIZED DRUG - OTHER] IV ONE (12:00)
[2017-05-03] MEDS ORDERED: CISPLATIN IV ONE (12:00)
[2017-05-03] MEDS ORDERED: MANNITOL IV ONE (12:00)
[2017-05-03] MEDS ORDERED: MAGNESIUM SULFATE IV ONE (12:00)
[2017-05-03] MEDS ORDERED: POTASSIUM CHLORIDE 20 MEQ in SODIUM CHLORIDE 0.9% 500 ML IV ONE (14:00)
[2017-05-03 14:07] VITALS: BP 85/46
[2017-05-03 16:28] VITALS: BP 89/57
[2017-05-03] MEDS ORDERED: CLOPIDOGREL 75 MG TABLET PO SCH (17:00)
[2017-05-03] MEDS ORDERED: METOPROLOL TARTRATE 25 MG TABLET PO SCH (18:00)
[2017-05-03 19:27] VITALS: BP 91/56
[2017-05-03] MEDS ORDERED: ATORVASTATIN 80 MG TABLET PO SCH (21:00)
== END 2017-05-03 19:30 | disposition home or self-care (01) ==
LOC: 3NW 07:50 → INTOOBSV 07:50
PROVIDERS: ADMIT Internal Medicine Hematology & Oncology; ATTEND Internal Medicine Hematology & Oncology
DX: Z51.11 Encounter for antineoplastic chemotherapy (principal); C32.9 Malignant neoplasm of larynx, unspecified
CPT/HCPCS: 36415; 77386; 80053; 83735; 85025; 96361; 96367; 96413; 96415; G0378; J1100; J1453; J1626; J2150; J3475; J3480; J7040; J9060; 77336

== ENCOUNTER 2017-05-10 08:00 | Observation (INO) | payer MEDICARE, MEDICAID ==
[2017-05-10] VITALS (9 sets, daily range): BP systolic 95–109; BP diastolic 60–72
[~2017-05-10] VITALS: Ht 175.3 cm; Wt 87.7 kg
[2017-05-10] MEDS ORDERED: PLEASE ENTER HEIGHT AND WEIGHT MC SCH (10:00)
[2017-05-10 10:21] LABS: ASPARTATE AMINO TRANSFERASE 13 U/L (15-37); BLOOD UREA NITROGEN 14 mg/dL (7-18)
[2017-05-10 11:30] LABS: HEMOGLOBIN 7.3 g/dL (13.7-18.0); WHITE BLOOD COUNT 2.8 x10^3/uL (3.4-10)
[2017-05-10 11:34] LABS: HEMATOCRIT 21.8 % (39.2-51.8)
[2017-05-10] MEDS ORDERED: SODIUM CHLORIDE 0.9% 500 ML IV SCH (12:00)
[2017-05-10] MEDS ORDERED: DIPHENHYDRAMINE 50 MG/ML, 1ML IVPush PRN (12:30)
[2017-05-10] MEDS ORDERED: ACETAMINOPHEN 325 MG TABLET PO ONE (12:30)
[2017-05-10] MEDS ORDERED: FOSAPREPITANT 150 MG in SODIUM CHLORIDE 0.9% 145 ML IV ONE (12:30)
[2017-05-10] MEDS ORDERED: GRANISETRON 1 MG, DEXAMETHASONE 10 MG in SODIUM CHLORIDE 0.9% 50 ML IV ONE (12:30)
[2017-05-10] MEDS ORDERED: [UNRECOGNIZED DRUG - OTHER] IV ONE (13:00)
[2017-05-10] MEDS ORDERED: CISPLATIN IV ONE (13:00)
[2017-05-10] MEDS ORDERED: MANNITOL IV ONE (13:00)
[2017-05-10] MEDS ORDERED: MAGNESIUM SULFATE IV ONE (13:00)
[2017-05-10] MEDS ORDERED: POTASSIUM CHLORIDE 20 MEQ in SODIUM CHLORIDE 0.9% 500 ML IV ONE (15:00)
== END 2017-05-10 20:50 | disposition home or self-care (01) ==
LOC: 3NW 08:02 → INTOOBSV 08:02
PROVIDERS: ADMIT Internal Medicine Hematology & Oncology; ATTEND Internal Medicine Hematology & Oncology
DX: Z51.11 Encounter for antineoplastic chemotherapy (principal); C32.9 Malignant neoplasm of larynx, unspecified
CPT/HCPCS: 36415; 77386; 80053; 83735; 85025; 86850; 86900; 86923; 96361; 96375; 96409; G0378; J1100; J1200; J1453; J1626; J2150; J3475; J3480; J7040; J9060; P9040

== ENCOUNTER 2017-05-17 09:20 | Observation (INO) | payer MEDICARE, MEDICAID ==
[~2017-05-17] VITALS: Ht 175.3 cm; Wt 87.5 kg
[~2017-05-17 09:20] MED LIST changes: +ATOR-2 PO; -ATOR80TA75 PO; -SUCR1ORA2 PEG; +SUCR1ORA5 PEG; -TOPI-33 PO; +TOPI25TA8 PO
[2017-05-17 09:49] VITALS: BP 98/56
[2017-05-17] MEDS ORDERED: SODIUM CHLORIDE 0.9% 500 ML IV SCH (11:00)
[2017-05-17] MEDS ORDERED: GRANISETRON 1 MG, DEXAMETHASONE 10 MG in SODIUM CHLORIDE 0.9% 50 ML IV ONE (12:30)
[2017-05-17] MEDS ORDERED: FOSAPREPITANT 150 MG in SODIUM CHLORIDE 0.9% 145 ML IV ONE (12:30)
[2017-05-17] MEDS ORDERED: MANNITOL IV ONE (13:00)
[2017-05-17] MEDS ORDERED: CISPLATIN IV ONE (13:00)
[2017-05-17] MEDS ORDERED: MAGNESIUM SULFATE IV ONE (13:00)
[2017-05-17] MEDS ORDERED: [UNRECOGNIZED DRUG - OTHER] IV ONE (13:00)
[2017-05-17 14:17] VITALS: BP 100/64
[2017-05-17] MEDS ORDERED: POTASSIUM CHLORIDE 20 MEQ in SODIUM CHLORIDE 0.9% 500 ML IV ONE (15:00)
== END 2017-05-17 18:00 | disposition home or self-care (01) ==
LOC: 3NW 09:20
PROVIDERS: ADMIT Internal Medicine Hematology & Oncology; ATTEND Internal Medicine Hematology & Oncology
DX: Z51.11 Encounter for antineoplastic chemotherapy (principal); C32.9 Malignant neoplasm of larynx, unspecified
CPT/HCPCS: 77386; 96361; 96367; 96413; 96415; G0378; J1100; J1453; J1626; J2150; J3475; J3480; J7040; J9060

== ENCOUNTER 2017-05-24 08:00 | Observation (INO) | payer MEDICARE, MEDICAID ==
[~2017-05-24] VITALS: Ht 175.3 cm; Wt 85.7 kg
[2017-05-24 10:26] VITALS: BP 106/66
[2017-05-24] MEDS ORDERED: PLEASE ENTER HEIGHT AND WEIGHT MC SCH (10:30)
[2017-05-24 10:33] LABS: BLOOD UREA NITROGEN 11 mg/dL (7-18)
[2017-05-24 10:34] LABS: HEMATOCRIT 27.3 % (39.2-51.8); HEMOGLOBIN 9.1 g/dL (13.7-18.0)
[2017-05-24 10:36] LABS: ASPARTATE AMINO TRANSFERASE 13 U/L (15-37)
[2017-05-24] MEDS ORDERED: SODIUM CHLORIDE 0.9% 500 ML IV SCH (13:30)
[2017-05-24 13:54] VITALS: BP 113/70
[2017-05-24] MEDS ORDERED: MAGNESIUM SULFATE IV ONE (14:00)
[2017-05-24] MEDS ORDERED: [UNRECOGNIZED DRUG - REMARK] MC SCH (14:00)
[2017-05-24] MEDS ORDERED: CISPLATIN IV ONE (14:00)
[2017-05-24] MEDS ORDERED: GRANISETRON 1 MG, DEXAMETHASONE 10 MG in SODIUM CHLORIDE 0.9% 50 ML IV ONE (14:00)
[2017-05-24] MEDS ORDERED: MANNITOL IV ONE (14:00)
[2017-05-24] MEDS ORDERED: FOSAPREPITANT 150 MG in SODIUM CHLORIDE 0.9% 145 ML IV ONE (14:00)
[2017-05-24] MEDS ORDERED: [UNRECOGNIZED DRUG - OTHER] IV ONE (14:00)
[2017-05-24] MEDS ORDERED: POTASSIUM CHLORIDE 20 MEQ in SODIUM CHLORIDE 0.9% 500 ML IV ONE (16:00)
== END 2017-05-24 19:44 | disposition home or self-care (01) ==
LOC: 3NW 09:23 → INTOOBSV 09:23
PROVIDERS: ADMIT Internal Medicine Hematology & Oncology; ATTEND Internal Medicine Hematology & Oncology
DX: Z51.11 Encounter for antineoplastic chemotherapy (principal); C32.9 Malignant neoplasm of larynx, unspecified
CPT/HCPCS: 36415; 71020; 77386; 80053; 83735; 85025; 96361; 96367; 96368; 96413; 96415; G0378; J1100; J1453; J1626; J2150; J3475; J3480; J7040; J9060

== ENCOUNTER 2017-06-08 09:58 | Inpatient (IN) | payer MEDICARE, MEDICAID ==
[~2017-06-08] VITALS: Ht 175.3 cm; Wt 84.6 kg
[2017-06-08] MEDS ORDERED: ALBUTEROL/IPRATROPIUM 2.5MG/0.5MG, 3 ML NPPB PRN (11:00)
[2017-06-08] MEDS: PLEASE ENTER WEIGHT MC SCH ×2 (11:00→19:00)
[2017-06-08] MEDS ORDERED: HYDROcodone/APAP 5/325 TABLET PEG PRN (11:30)
[2017-06-08] MEDS ORDERED: LABETALOL 5MG/ML, 20ML IVPush PRN (11:30)
[2017-06-08] MEDS ORDERED: ACETAMINOPHEN 325 MG TABLET PEG PRN (11:30)
[2017-06-08] MEDS ORDERED: ONDANSETRON 2MG/ML, 2ML IVPush PRN (11:30)
[2017-06-08] MEDS ORDERED: hydrOXyzine 50MG TABLET PO PRN (12:00)
[2017-06-08 12:20] LABS: HEMATOCRIT 27.6 % (39.2-51.8); HEMOGLOBIN 9.6 g/dL (13.7-18.0); WHITE BLOOD COUNT 2.3 x10^3/uL (3.4-10)
[2017-06-08 12:30] LABS: ASPARTATE AMINO TRANSFERASE 7 U/L (15-37); BLOOD UREA NITROGEN 20 mg/dL (7-18)
[2017-06-08] MEDS ORDERED: POTASSIUM CHLORIDE 40 MEQ in SODIUM CHLORIDE 0.9% 100 ML IV ONE (13:30)
[2017-06-08] MEDS ORDERED: MAGNESIUM SULFATE PMX 2GM/50ML 50 ML IV ONE (13:30)
[2017-06-08 13:39] LABS: DIFF TOTAL CELLS COUNTED 100 CELL DIFF
[2017-06-08 13:44] LABS: ANISOCYTOSIS 1+; OVALOCYTES 1+; POIKILOCYTOSIS 1+; VERIFY COUNTS? YES
[2017-06-08 14:02] LABS: OCCBLD OBC PASS
[2017-06-08 14:33] VITALS: BP 110/63
[2017-06-08] MEDS: SODIUM CHLORIDE 0.9% 1,000 ML IV SCH (15:12)
[2017-06-08] MEDS: metroNIDAZOLE 500 MG TABLET PEG SCH ×2 (16:00→22:15)
[2017-06-08] MEDS: POTASSIUM CHLORIDE 20 MEQ PACKET PO SCH (17:00)
[2017-06-08 18:20] VITALS: BP 100/60
[2017-06-08 18:57] LABS: HEMATOCRIT 24.5 % (39.2-51.8); HEMOGLOBIN 8.6 g/dL (13.7-18.0)
[2017-06-08] MEDS ORDERED: GABAPENTIN 300 MG CAPSULE PO SCH (21:00)
[2017-06-08] MEDS: TOPIRAMATE 25 MG TABLET PO SCH (22:12)
[2017-06-08] MEDS: ATORVASTATIN 80 MG TABLET PO SCH (22:12)
[2017-06-08] MEDS: LEVETIRACETAM 500 MG TABLET PO SCH (22:13)
[2017-06-08] MEDS: PANTOPRAZOLE 40 MG IV IVPush SCH (22:14)
[2017-06-08 23:46] LABS: HEMATOCRIT 25.8 % (39.2-51.8); HEMOGLOBIN 8.9 g/dL (13.7-18.0)
[2017-06-09 01:50] VITALS: BP 101/60
[2017-06-09] MEDS: SODIUM CHLORIDE 0.9% 1,000 ML IV SCH (05:15)
[2017-06-09 05:41] LABS: BLOOD UREA NITROGEN 19 mg/dL (7-18)
[2017-06-09 05:46] LABS: HEMATOCRIT 24.5 % (39.2-51.8); HEMOGLOBIN 8.5 g/dL (13.7-18.0)
[2017-06-09 06:20] LABS: DIFF TOTAL CELLS COUNTED 100 CELL DIFF
[2017-06-09 06:27] LABS: ANISOCYTOSIS 1+
[2017-06-09 06:28] LABS: OVALOCYTES 1+; POIKILOCYTOSIS 1+; VERIFY COUNTS? YES
[2017-06-09 07:24] VITALS: BP 100/61
[2017-06-09] MEDS ORDERED: POTASSIUM CHLORIDE 40 MEQ in SODIUM CHLORIDE 0.9% 500 ML IV ONE (07:30)
[2017-06-09] MEDS: PANTOPRAZOLE 40 MG IV IVPush SCH ×2 (08:43→20:50)
[2017-06-09] MEDS: LEVETIRACETAM 500 MG TABLET PO SCH ×2 (08:43→20:50)
[2017-06-09] MEDS: TOPIRAMATE 25 MG TABLET PO SCH ×2 (08:43→20:50)
[2017-06-09] MEDS: POTASSIUM CHLORIDE 20 MEQ PACKET PO SCH ×2 (08:44→16:51)
[2017-06-09 12:20] LABS: HEMATOCRIT 24.2 % (39.2-51.8); HEMOGLOBIN 8.3 g/dL (13.7-18.0)
[2017-06-09 13:33] VITALS: BP 103/63
[2017-06-09] MEDS: GABAPENTIN 250 MG/5 ML ORAL SOL PO SCH ×2 (16:51→20:38)
[2017-06-09 19:37] VITALS: BP 100/61
[2017-06-09] MEDS: ATORVASTATIN 80 MG TABLET PO SCH (20:51)
[2017-06-09] MEDS: LEXAPRO 10 MG HOMEMEDPO SCH (20:51)
[2017-06-10 03:12] VITALS: BP 112/67
[2017-06-10 03:35] LABS: HEMATOCRIT 25.9 % (39.2-51.8); HEMOGLOBIN 8.7 g/dL (13.7-18.0)
[2017-06-10 03:36] LABS: WHITE BLOOD COUNT 1.7 x10^3/uL (3.4-10)
[2017-06-10 03:41] LABS: BLOOD UREA NITROGEN 17 mg/dL (7-18)
[2017-06-10 03:55] LABS: DIFF TOTAL CELLS COUNTED 100 CELL DIFF
[2017-06-10 04:04] LABS: ACANTHOCYTES 1+; ANISOCYTOSIS 1+; OVALOCYTES 1+; POIKILOCYTOSIS 1+; VERIFY COUNTS? YES
[2017-06-10] MEDS: POTASSIUM CHLORIDE 20 MEQ PACKET PO SCH ×2 (08:00→17:42)
[2017-06-10 08:30] VITALS: BP 115/72
[2017-06-10] MEDS ORDERED: VANCOMYCIN PER PHARMACY MC PRN (09:00)
[2017-06-10] MEDS: [UNRECOGNIZED DRUG - REMARK] MC SCH ×9 (09:30→23:35)
[2017-06-10] MEDS: SODIUM CHLORIDE 0.9% 1,000 ML IV SCH ×2 (09:36→21:28)
[2017-06-10] MEDS: TOPIRAMATE 25 MG TABLET PO SCH ×2 (09:37→21:28)
[2017-06-10] MEDS: LEVETIRACETAM 500 MG TABLET PO SCH ×2 (09:37→21:28)
[2017-06-10] MEDS: PANTOPRAZOLE 40 MG IV IVPush SCH ×2 (09:37→21:28)
[2017-06-10] MEDS: GABAPENTIN 250 MG/5 ML ORAL SOL PO SCH ×3 (09:40→21:28)
[2017-06-10] MEDS ORDERED: PHARMACOKINETIC MONITORING MC PRN (10:00)
[2017-06-10] MEDS: PIPERACILLIN/TAZO/PMX 3.375GM 50 ML IV SCH ×3 (10:17→23:29)
[2017-06-10] MEDS: ALBUTEROL/IPRATROPIUM 2.5MG/0.5MG, 3 ML NPPB SCH ×4 (11:00→23:00)
[2017-06-10] MEDS: VANCOMYCIN 1,600 MG in SODIUM CHLORIDE 0.9% 250 ML IV SCH (11:01)
[2017-06-10 15:07] VITALS: BP 110/70
[2017-06-10 18:43] VITALS: BP 97/60
[2017-06-10] MEDS: LEXAPRO 10 MG HOMEMEDPO SCH (21:00)
[2017-06-10] MEDS: ATORVASTATIN 80 MG TABLET PO SCH (21:28)
[2017-06-10 22:36] VITALS: BP 97/60
[2017-06-10 23:29] VITALS: BP 106/65
[2017-06-11] MEDS: [UNRECOGNIZED DRUG - REMARK] MC SCH ×2 (01:46→01:47)
[2017-06-11 01:50] VITALS: BP 100/61
[2017-06-11] MEDS: ALBUTEROL/IPRATROPIUM 2.5MG/0.5MG, 3 ML NPPB SCH ×6 (03:00→23:00)
[2017-06-11] MEDS: PIPERACILLIN/TAZO/PMX 3.375GM 50 ML IV SCH ×3 (05:53→16:52)
[2017-06-11 06:31] VITALS: BP 106/68
[2017-06-11] MEDS: GABAPENTIN 250 MG/5 ML ORAL SOL PO SCH ×2 (09:39→20:14)
[2017-06-11] MEDS: VANCOMYCIN 1,600 MG in SODIUM CHLORIDE 0.9% 250 ML IV SCH (09:39)
[2017-06-11] MEDS: LEVETIRACETAM 100 MG/ML ORAL SOL GT SCH ×2 (09:39→20:14)
[2017-06-11] MEDS: POTASSIUM CHLORIDE 20 MEQ PACKET PO SCH ×2 (09:40→16:52)
[2017-06-11] MEDS: PANTOPRAZOLE 40 MG IV IVPush SCH ×2 (09:40→20:14)
[2017-06-11] MEDS: TOPIRAMATE 25 MG TABLET PO SCH ×2 (09:40→20:14)
[2017-06-11 11:03] LABS: HEMOGLOBIN 6.9 g/dL (13.7-18.0); WHITE BLOOD COUNT 1.5 x10^3/uL (3.4-10)
[2017-06-11 11:04] LABS: HEMATOCRIT 20.5 % (39.2-51.8)
[2017-06-11 11:12] LABS: DIFF TOTAL CELLS COUNTED 100 CELL DIFF
[2017-06-11 11:14] LABS: ANISOCYTOSIS 2+; OVALOCYTES 1+; POIKILOCYTOSIS 1+; VERIFY COUNTS? YES
[2017-06-11 11:57] LABS: HEMATOCRIT 24.1 % (39.2-51.8); HEMOGLOBIN 8.2 g/dL (13.7-18.0)
[2017-06-11] MEDS: SODIUM CHLORIDE 0.9% 1,000 ML IV SCH (12:00)
[2017-06-11] MEDS: ATROPINE 0.4 MG/ML IPPB SCH ×2 (12:10→18:00)
[2017-06-11 12:19] LABS: WHITE BLOOD COUNT 1.6 x10^3/uL (3.4-10)
[2017-06-11 12:53] LABS: BLOOD UREA NITROGEN 17 mg/dL (7-18)
[2017-06-11 14:34] VITALS: BP 116/73
[2017-06-11] MEDS: morphine SULFATE 10 MG/ML, 1ML IVPush PRN ×2 (16:52→20:35)
[2017-06-11 18:27] VITALS: BP 106/64
[2017-06-11] MEDS: ATORVASTATIN 80 MG TABLET PO SCH (20:14)
[2017-06-11] MEDS: LEXAPRO 10 MG HOMEMEDPO SCH (20:15)
[2017-06-12] MEDS: PIPERACILLIN/TAZO/PMX 3.375GM 50 ML IV SCH ×3 (00:18→11:58)
[2017-06-12] MEDS: SODIUM CHLORIDE 0.9% 1,000 ML IV SCH (00:18)
[2017-06-12] MEDS: ATROPINE 0.4 MG/ML IPPB SCH ×3 (02:00→18:25)
[2017-06-12 02:15] VITALS: BP 92/57
[2017-06-12] MEDS: ALBUTEROL/IPRATROPIUM 2.5MG/0.5MG, 3 ML NPPB SCH ×6 (03:00→23:10)
[2017-06-12 04:23] VITALS: BP 93/56
[2017-06-12 04:52] LABS: BLOOD UREA NITROGEN 17 mg/dL (7-18)
[2017-06-12 05:03] LABS: HEMOGLOBIN 7.8 g/dL (13.7-18.0)
[2017-06-12 05:04] LABS: WHITE BLOOD COUNT 1.6 x10^3/uL (3.4-10)
[2017-06-12 05:53] LABS: DIFF TOTAL CELLS COUNTED 100 CELL DIFF
[2017-06-12 05:58] LABS: VERIFY COUNTS? YES
[2017-06-12 05:59] LABS: ACANTHOCYTES 1+; ANISOCYTOSIS 1+
[2017-06-12 06:00] LABS: OVALOCYTES 1+; POIKILOCYTOSIS 1+
[2017-06-12 06:53] VITALS: BP 93/61
[2017-06-12] MEDS ORDERED: FUROSEMIDE 40 MG/4 ML IV ONE (07:30)
[2017-06-12] MEDS: POTASSIUM CHLORIDE 20 MEQ PACKET PO SCH ×2 (10:02→17:43)
[2017-06-12] MEDS: LEVETIRACETAM 100 MG/ML ORAL SOL GT SCH ×2 (10:02→21:17)
[2017-06-12] MEDS: PANTOPRAZOLE 40 MG IV IVPush SCH ×2 (10:02→21:17)
[2017-06-12] MEDS: TOPIRAMATE 25 MG TABLET PO SCH ×2 (10:02→21:16)
[2017-06-12] MEDS: VANCOMYCIN 1,600 MG in SODIUM CHLORIDE 0.9% 250 ML IV SCH (10:03)
[2017-06-12] MEDS: GABAPENTIN 250 MG/5 ML ORAL SOL PO SCH ×2 (10:03→21:17)
[2017-06-12] MEDS ORDERED: PHARMACY INSTRUCTION MC SCH (14:00)
[2017-06-12] MEDS: AZTREONAM 2 GM in DEXTROSE 5% 100 ML IV SCH (15:13)
[2017-06-12] MEDS: CIPROFLOXACIN/PMX 400MG/200ML 200 ML IV SCH (17:43)
[2017-06-12 20:26] VITALS: BP 93/58
[2017-06-12] MEDS: LEXAPRO 10 MG HOMEMEDPO SCH (21:00)
[2017-06-12] MEDS: ATORVASTATIN 80 MG TABLET PO SCH (21:16)
[2017-06-12] MEDS: morphine SULFATE 10 MG/ML, 1ML IVPush PRN (21:33)
[2017-06-13] VITALS (7 sets, daily range): BP systolic 99–121; BP diastolic 59–81
[2017-06-13] MEDS: CIPROFLOXACIN/PMX 400MG/200ML 200 ML IV SCH ×3 (01:00→18:54)
[2017-06-13] MEDS: ATROPINE 0.4 MG/ML IPPB SCH ×3 (02:00→20:35)
[2017-06-13] MEDS: ALBUTEROL/IPRATROPIUM 2.5MG/0.5MG, 3 ML NPPB SCH ×5 (03:11→20:35)
[2017-06-13] MEDS: AZTREONAM 2 GM in DEXTROSE 5% 100 ML IV SCH ×2 (05:27→17:54)
[2017-06-13] MEDS ORDERED: CATHFLO-ALTEPLASE 2 MG/2 ML CATHFLUSH ONE (06:00)
[2017-06-13 09:01] LABS: HEMOGLOBIN 7.8 g/dL (13.7-18.0)
[2017-06-13 09:03] LABS: DIFF TOTAL CELLS COUNTED 100 CELL DIFF
[2017-06-13 09:09] LABS: BLOOD UREA NITROGEN 16 mg/dL (7-18)
[2017-06-13] MEDS: POTASSIUM CHLORIDE 20 MEQ PACKET PO SCH ×2 (09:16→17:54)
[2017-06-13] MEDS: PANTOPRAZOLE 40 MG IV IVPush SCH (09:16)
[2017-06-13] MEDS: LEVETIRACETAM 100 MG/ML ORAL SOL GT SCH (09:16)
[2017-06-13] MEDS: TOPIRAMATE 25 MG TABLET PO SCH (09:16)
[2017-06-13] MEDS: GABAPENTIN 250 MG/5 ML ORAL SOL PO SCH (09:16)
[2017-06-13 09:55] LABS: HEMATOCRIT 22.9 % (39.2-51.8); WHITE BLOOD COUNT 1.6 x10^3/uL (3.4-10)
[2017-06-13 10:01] LABS: ACANTHOCYTES 1+; ANISOCYTOSIS 1+; OVALOCYTES 1+; POIKILOCYTOSIS 1+; VERIFY COUNTS? YES
[2017-06-13] MEDS ORDERED: VANCOMYCIN 1,600 MG in SODIUM CHLORIDE 0.9% 250 ML IV SCH (12:00)
[2017-06-13] MEDS ORDERED: SCOP1PAT TD (12:26)
[2017-06-13] MEDS ORDERED: CIPR500T87 PO (12:26)
[2017-06-13] MEDS ORDERED: PANT40TA3 PO (12:26)
[2017-06-13] MEDS ORDERED: ACETAMINOPHEN 325 MG TABLET PO ONE (12:30)
[2017-06-13] MEDS ORDERED: DIPHENHYDRAMINE 50 MG/ML, 1ML IVPush ONE (12:30)
== END 2017-06-13 20:25 | disposition home health service (06) | DRG 808 ==
LOC: 3NW 09:58
PROVIDERS: ADMIT Internal Medicine; ATTEND Internal Medicine
PROC: 30233N1 Transfusion of Nonautologous Red Blood Cells into Peripheral Vein, Percutaneous Approach (ICD-10-PCS; principal; 2017-06-13)
DX: D61.818 Other pancytopenia (principal); J69.0 Pneumonitis due to inhalation of food and vomit; I50.42 Chronic combined systolic (congestive) and diastolic (congestive) heart failure; E44.0 Moderate protein-calorie malnutrition; K92.2 Gastrointestinal hemorrhage, unspecified; C32.9 Malignant neoplasm of larynx, unspecified; J44.0 Chronic obstructive pulmonary disease with (acute) lower respiratory infection; E87.1 Hypo-osmolality and hyponatremia; D63.8 Anemia in other chronic diseases classified elsewhere; E78.5 Hyperlipidemia, unspecified; E83.42 Hypomagnesemia; E87.6 Hypokalemia; G40.909 Epilepsy, unspecified, not intractable, without status epilepticus; I25.10 Atherosclerotic heart disease of native coronary artery without angina pectoris; Z66 Do not resuscitate; Z82.49 Family history of ischemic heart disease and other diseases of the circulatory system; Z82.5 Family history of asthma and other chronic lower respiratory diseases; Z83.3 Family history of diabetes mellitus; Z85.21 Personal history of malignant neoplasm of larynx; Z87.01 Personal history of pneumonia (recurrent); Z87.891 Personal history of nicotine dependence; Z91.19 Patient's noncompliance with other medical treatment and regimen; Z95.1 Presence of aortocoronary bypass graft; Z79.899 Other long term (current) drug therapy; Z79.02 Long term (current) use of antithrombotics/antiplatelets; Z68.27 Body mass index [BMI] 27.0-27.9, adult
CPT/HCPCS: 36415; 71010; 77336; 77386; 80048; 80053; 80202; 82272; 83735; 84100; 84132; 85014; 85018; 85025; 85027; 86850; 86900; 86923; 87040; 87070; 87077; 87186; 87205; 87324; 94640; J0744; J2543; J2997; J3370; J3480; J7620; C9113; J0461; J1200; J2270; J3475; J7030; J7040; J7050; P9040

== ENCOUNTER → 2017-06-26 | Outpatient (CLI) | payer MEDICARE, MEDICAID ==
[~2017-06-26] MED LIST changes: +CIPR500T87 PO; +PANT40TA3 PO; +SCOP1PAT TD
== END | disposition home or self-care (01) ==
LOC: ROC 10:45 → EDSTATUS 13:57
PROVIDERS: ATTEND Radiology Radiation Oncology
DX: C15.9 Malignant neoplasm of esophagus, unspecified (principal)
CPT/HCPCS: G0463

== ENCOUNTER → 2017-09-14 | Outpatient (CLI) | payer MEDICARE, MEDICAID ==
[~2017-09-14] MED LIST changes: +OMNIPAQUE 350 MG/ML, 75ML BOTTLE ONE
== END ==
LOC: CFH 10:48
PROVIDERS: ATTEND Radiology Radiation Oncology
DX: J43.8 Other emphysema (principal); J98.11 Atelectasis; C32.0 Malignant neoplasm of glottis; J84.10 Pulmonary fibrosis, unspecified; Z93.1 Gastrostomy status; Z92.3 Personal history of irradiation
CPT/HCPCS: 71260; Q9967

== ENCOUNTER → 2017-09-21 | Outpatient (CLI) | payer MEDICARE, MEDICAID ==
[~2017-09-21] MED LIST changes: -OMNIPAQUE 350 MG/ML, 75ML BOTTLE ONE
== END | disposition home or self-care (01) ==
LOC: ROC 15:04
PROVIDERS: ATTEND Radiology Radiation Oncology
DX: Z08 Encounter for follow-up examination after completed treatment for malignant neoplasm (principal); C32.0 Malignant neoplasm of glottis; J44.9 Chronic obstructive pulmonary disease, unspecified; I25.10 Atherosclerotic heart disease of native coronary artery without angina pectoris; I50.9 Heart failure, unspecified; Z79.891 Long term (current) use of opiate analgesic
CPT/HCPCS: G0463

== ENCOUNTER → 2017-10-06 | Outpatient (CLI) | payer MEDICARE, MEDICAID | END | disposition home or self-care (01) | LOC: ROC 10:35 | PROVIDERS: ATTEND Radiology Radiation Oncology | DX: C32.9 Malignant neoplasm of larynx, unspecified (principal); J44.9 Chronic obstructive pulmonary disease, unspecified; Z85.21 Personal history of malignant neoplasm of larynx; F41.9 Anxiety disorder, unspecified; F32.9 Major depressive disorder, single episode, unspecified | CPT/HCPCS: G0463 ==

== ENCOUNTER 2017-11-20 18:19 | Emergency (ER) | payer OTHER, MEDICARE, MEDICAID | END 2017-11-20 19:19 | disposition left against medical advice (07) | LOC: ED 18:31 | DX: R06.03 Acute respiratory distress (principal); J43.9 Emphysema, unspecified; I11.0 Hypertensive heart disease with heart failure; I50.9 Heart failure, unspecified; C80.1 Malignant (primary) neoplasm, unspecified; Z46.82 Encounter for fitting and adjustment of non-vascular catheter; Z43.0 Encounter for attention to tracheostomy | CPT/HCPCS: 99283 ==